=== PATIENT | female | born 1960 | race Caucasian/White ===

== ENCOUNTER 2017-02-26 18:09 | Emergency (ER) | payer OTHER ==
[~2017-02-26] VITALS: Wt 132.0 kg
[~2017-02-26 18:09] MED LIST: ADVAIR 250/501 EA INH; ALBUTEROL2.5 MG/0.5 INH; ANTIDEPRESSENT; BACTRIM DS 8001 TA1 PO; BUSPIRONE10 MG PO; CIPRO500 MG PO; CITALOPRAM10 MG PO; COLACE100 MG PO; COMBIVENT1 AR1 IH; DELTASONE10 MG PO; DULCOLAX10 MG R; Duoneb 3ML 3 MG/3 ML INH; FOLIC ACID1 MG PO; IBUPROFEN200 M1 PO; JARDIANCE25 MG PO; KEFLEX500 MG PO; LANTUS100 U/ML SC; LEVAQUIN750 M1 PO; LIPITOR40 MG PO; LISINOPRIL AND1 TAB PO; LOVENOX40 MG/0.4 SC; METFORMIN1000 MG PO; MUCINEX600 MG PO; NEURONTIN600 MG PO; NICODERM21 MG/24 H TD; NKHM; OMEPRAZOLE20 MG PO; OXYCODONE5 M1 PO; OXYGEN NAS; PREDNISONE10 MG PO; ROBITUSSIN CF240 ML PO; SYMBICORT1 AE1 IH; TRAD5TAB1 PO; TRAZODONE50 MG PO; TUDORZA PRESS400 MCG IH; TYLENOL COLD &1 TAB PO; TYLENOL325 M1 PO; VENTOLIN 02.5 MG/3 M INH; VENTOLIN,PR2 MG/5 ML PO; VICODIN 5/500 505 MG PO; VICODIN 500 MG-1 TAB PO; VITAMIN B12 1541 TAB PO; VITAMIN D32000 UNIT PO; ZITHROMAX250 MG PO; ZOLOFT25 MG PO; ZOVIRAX800 MG PO
[2017-02-26 21:02] LABS: BASO % 0.3 % (0.0-1.0); EOS # 0.2 10*3/uL (0.0-0.4); EOS % 3.1 % (1.0-4.0); HEMATOCRIT 34.8 % (37.0-47.0); HEMOGLOBIN 11.3 g/dl (12.0-16.0); LYMPH # 1.8 10*3/uL (1.3-4.4); LYMPH % 30.1 % (27.0-41.0); MEAN CORPUSCULAR HGB 30.2 pg (27.0-31.0); MEAN CORPUSCULAR HGB CONC 32.5 g/dl (33.0-37.0); MEAN PLATELET VOLUME 9.4 fl (9.6-12.3); MONO # 0.4 10*3/uL (0.1-1.0); MONO % 6.4 % (3.0-9.0); NEUT # 3.6 10*3/uL (2.3-7.9); NEUT % 59.9 % (47.0-73.0); PLATELET COUNT AUTOMATED 129 10*3/uL (130-400); RED BLOOD COUNT 3.74 10*6/uL (4.10-5.10); RED CELL DISTRI WIDTH 12.8 % (0-14.5); WHITE BLOOD COUNT 6.1 10*3/uL (4.8-10.8)
[2017-02-26 21:18] LABS: ALBUMIN 3.7 gm/dl (3.1-4.5); CREATININE 1.66 mg/dL (0.55-1.02); POTASSIUM 4.3 mmol/L (3.5-5.1); TOTAL PROTEIN 7.7 gm/dL (6.4-8.2)
== END 2017-02-27 02:52 | disposition short-term general hospital (02) ==
LOC: ED 18:09
PROVIDERS: Nurse Practitioner Family
DX: S93.05XA Dislocation of left ankle joint, initial encounter (principal); Z79.899 Other long term (current) drug therapy; Z87.891 Personal history of nicotine dependence; W18.39XA Other fall on same level, initial encounter; Y93.89 Activity, other specified; Y92.89 Other specified places as the place of occurrence of the external cause; Y99.8 Other external cause status

== ENCOUNTER 2017-03-15 10:04 | Inpatient (IN) | payer OTHER ==
[2017-03-15] VITALS (9 sets, daily range): BP systolic 80–113; BP diastolic 40–54
[~2017-03-15] VITALS: Ht 172.7 cm; Wt 128.6 kg
--- NOTE | ~2017-03-15 | PR ---
[place], [place] PROGRESS NOTE NAME: [facility] UNIT #: [id number] ROOM: 511 DOCTOR: LUCITA SUGGSSEPTEMBER BIRTHDATE: [birth year] DOS: 03/20/2017 SUBJECTIVE: The patient is being followed for urinary tract infection with E. coli. She is currently on Keflex. She is tolerating it without issues. Denies any fevers, chills, nausea, vomiting or diarrhea. No rash or itch. Little cough. No shortness of breath. No dysuria or frequency. LABORATORY DATA: Showed WBCs 8.2, platelets 222. PHYSICAL EXAMINATION: VITAL SIGNS: Showed temp 97.8, pulse 101, respirations 20, BP 110/77. GENERAL: Alert and oriented 56-year-old female in no acute distress. HEAD, EARS, EYES, NOSE, AND THROAT: Normocephalic, no thrush. LUNGS: Clear to auscultation bilaterally. Respirations even and unlabored. HEART: Regular rhythm. No murmur appreciated. ABDOMEN: Soft, nontender. EXTREMITIES: Left lower extremity is casted. SKIN: Warm, dry, free of rashes. ASSESSMENT: Urinary tract infection with Escherichia coli. PLAN: She is to be discharged to ____ as soon as precertification is available. She is to complete her Keflex as previously ordered. At this point in time, we will see her as needed. GARO LANDRUM CNP HAYDEE BENNETT MD CM:PNTRANS [phone] GARO LANDRUM CNP 03/22/17 0618 interface
--- NOTE | ~2017-03-15 | PR ---
[place], [place] PROGRESS NOTE NAME: [facility] [facility] UNIT #: [id number] ROOM: 511 DOCTOR: LUCITA SUGGSSEPTEMBER BIRTHDATE: [birth year] DOS: 03/19/2017 SUBJECTIVE: The patient is being followed for urinary tract infection. She had fairly sensitive E. coli of the urine, blood cultures were negative. She is alert and oriented; feels well, is awaiting to go back to her custodial. We are awaiting precert. Her only complaint is of a headache. She denies any hematuria, dysuria or frequency. No nausea, vomiting or diarrhea. Little nonproductive cough. No shortness of breath. LABORATORY DATA: Cultures were reviewed above. BUN 32, creatinine 1.03. PHYSICAL EXAMINATION: VITAL SIGNS: Temperature 97.5, pulse 89, respirations 18. GENERAL: A 56-year-old obese female, in no acute distress. HEAD, EYES, EARS, NOSE AND THROAT: Normocephalic. No thrush. LUNGS: Clear to auscultation bilaterally. Respirations even and unlabored. HEART: Regular rhythm. No murmur appreciated. ABDOMEN: Soft, nontender. EXTREMITIES: Right lower extremity, no edema. Left lower extremity casted. SKIN: Warm, dry, free of rashes. ASSESSMENT: Urinary tract infection with Escherichia coli. PLAN: She is on Keflex, awaiting discharge to her custodial once precertification has gone through. Case discussed with Dr. Haydee Bennett. GARO LANDRUM CNP HAYDEE BENNETT MD CM:PNTRANS [id number] GARO LANDRUM CNP 03/22/17 0615 interface
--- NOTE | ~2017-03-15 | PR ---
[place], [place] PROGRESS NOTE NAME: [facility] UNIT #: [id number] ROOM: 511 DOCTOR: SABRINA ELDER,HAYDEE Malcolm BIRTHDATE: [birth year] DOS: 03/20/2017 ADDENDUM I agree with the above plans as described. We will follow the patient up clinically and adjust accordingly. HAYDEE BENNETT MD CM:PNTRANS [id number] HAYDEE BENNETT MD 03/22/17 0630 interface
--- NOTE | ~2017-03-15 | EKG ---
[place], [place] ELECTROCARDIOGRAM REPORT NAME: [facility] UNIT #: [id number] ROOM: 511 DOCTOR: KARYN GARRETT MD BIRTHDATE: [birth year] DOS: 03/15/2017 TIME: 1023 hours. Sinus tachycardia at 101 beats per minute. Low voltage in precordial leads. The tracing is otherwise normal. No previous tracing is available for comparison. KARYN GARRETT MD CM:EKGRPT:ELECTROCARDIOGRAM REPORT [id number] KARYN GARRETT MD
--- NOTE | ~2017-03-15 | PR ---
[place], [place] PROGRESS NOTE [id number] UN[facility] #: [id number] ROOM: 511 DOCTOR: SABRINA ELDER,HAYDEE Malcolm BIRTHDATE: [birth year] DOS: INFECTIOUS DISEASE PROGRESS NOTE I agree with above plans as described. We will follow the patient up clinically and adjust accordingly. HAYDEE BENNETT MD CM:PNTRANS [phone] HAYDEE BENNETT MD 03/19/17 1657 interface
[~2017-03-15 10:04] MED LIST changes: -ALBUTEROL2.5 MG/0.5 INH; -LISINOPRIL AND1 TAB PO; +OXYCODONE HCL E15 MG PO; -OXYCODONE5 M1 PO; +ZESTORETIC 10-1 EACH PO; +ZOLOFT100 MG PO; -ZOLOFT25 MG PO
[2017-03-15 10:34] LABS: BASO % 0.3 % (0.0-1.0); EOS # 0.1 10*3/uL (0.0-0.4); EOS % 1.7 % (1.0-4.0); HEMATOCRIT 32.6 % (37.0-47.0); LYMPH # 1.1 10*3/uL (1.3-4.4); LYMPH % 16.1 % (27.0-41.0); MEAN CELL VOLUME 94.5 fl (81.0-99.0); MEAN CORPUSCULAR HGB CONC 30.7 g/dl (33.0-37.0); MEAN PLATELET VOLUME 9.7 fl (9.6-12.3); MONO # 0.5 10*3/uL (0.1-1.0); MONO % 6.9 % (3.0-9.0); NEUT # 4.9 10*3/uL (2.3-7.9); NEUT % 74.5 % (47.0-73.0); PLATELET COUNT AUTOMATED 236 10*3/uL (130-400); RED BLOOD COUNT 3.45 10*6/uL (4.10-5.10); RED CELL DISTRI WIDTH 13.5 % (0-14.5); WHITE BLOOD COUNT 6.6 10*3/uL (4.8-10.8)
[2017-03-15 10:43] LABS: ACT PARTIAL THROMBO TIME 29.6 SECONDS (20.8-31.5)
[2017-03-15 10:48] LABS: ALBUMIN 3.4 gm/dl (3.1-4.5); ALKALINE PHOSPHATASE 84 U/L (45-117); BUN 43 mg/dl (7-24); CHLORIDE 95 mmol/L (98-107); CREATININE 5.04 mg/dL (0.55-1.02); LIPASE 168 U/L (73-393); POTASSIUM 4.6 mmol/L (3.5-5.1); SGOT/AST 27 IU/L (3-35); SGPT/ALT 28 U/L (12-78); SODIUM 133 mmol/L (136-145); TOTAL PROTEIN 8.8 gm/dL (6.4-8.2)
[2017-03-15 10:54] LABS: TROPONIN I < 0.015 ng/ml (<0.045)
[2017-03-15 11:42] LABS: BILIRUBIN 1+ (NEGATIVE); BLOOD 3+ (NEGATIVE); CLARITY CLOUDY (CLEAR); COLOR YELLOW (YELLOW); GLUCOSE NEGATIVE (NEGATIVE); KETONE NEGATIVE (NEGATIVE); LEUKO ESTERASE TRACE (NEGATIVE); NITRITE NEGATIVE (NEGATIVE); SPECIFIC GRAVITY >= 1.030 (1.005-1.030)
--- NOTE | 2017-03-15 11:49 | NUR ---
DR HERNANDEZ AWARE OF LOW BP. PT IS ALERT,NO C/O.SKIN PINK,WARM,DRY.--SONIA DUGGAN RN
[2017-03-15 11:53] LABS: RBC 31-40 rbc/hpf (0-2)
[2017-03-15 11:54] LABS: BACTERIA 1+
[2017-03-15] MEDS ORDERED: CYCLOBENZAPRINE10 MG PO (15:09)
[2017-03-15] MEDS ORDERED: DALI500T PO (15:10)
[2017-03-15] MEDS ORDERED: DULCOLAX10 M1 R (15:14)
[2017-03-15] MEDS ORDERED: Lovenox40 MG/0.4 PO (15:19)
[2017-03-15] MEDS ORDERED: MILK OF MA400 MG/5 M PO (15:22)
[2017-03-15] MEDS ORDERED: OMEPRAZOLE D/R20 MG PO (15:23)
[2017-03-15] MEDS ORDERED: OXYCODONE HCL10 M1 PO (15:28)
[2017-03-15] MEDS ORDERED: ADIPEX-P37.5 MG PO (15:29)
[2017-03-15] MEDS ORDERED: TUDORZA PRESS400 MCG PO (15:37)
[2017-03-15] MEDS ORDERED: PROAIR HFA8.5 GM INH (15:38)
[2017-03-15] MEDS ORDERED: ZOLOFT50 MG PO (15:40)
[2017-03-15 17:03] LABS: ABG HCO3 21.3 mmol/l (22-26); ABG O2 SATURATION 93.5 % (95-97); ARTERIAL BLOOD GAS PCO2 47.6 mmHg (35-45); ARTERIAL BLOOD GAS PH 7.272 (7.35-7.45)
--- NOTE | 2017-03-15 17:11 | NUR ---
CALLED WITH ABG RESULTS.
--- NOTE | 2017-03-15 18:17 | NUR ---
REGARDING TEMPERATURE 103.2 ORALLY. HEART RATE 120'S. PATIENT CONFUSED AT THIS TIME. STATED TO GIVE TYLENOL PER PRN ORDER.
--- NOTE | 2017-03-15 18:18 | NUR ---
PATIENT MEDICATED WITH TYLENOL PER PRN ORDER FOR TEMPERATURE 103.2.
--- NOTE | 2017-03-15 18:41 | NUR ---
RECTAL TEMPERATURE TAKEN WITH 104.8 RESULT. NOTIFIED. ORDER RECEIVED FOR ONE TIME DOSE MORTIN AND COOLING BLANKET.
--- NOTE | 2017-03-15 19:23 | NUR ---
CALLED ANSWERING SERVICE REGARDING NEW CONSULT.
[2017-03-15 19:26] LABS: BASO % 0.5 % (0.0-1.0); EOS # 0.1 10*3/uL (0.0-0.4); EOS % 1.6 % (1.0-4.0); HEMATOCRIT 31.1 % (37.0-47.0); HEMOGLOBIN 9.6 g/dl (12.0-16.0); LYMPH # 0.5 10*3/uL (1.3-4.4); LYMPH % 10.8 % (27.0-41.0); MEAN CELL VOLUME 93.7 fl (81.0-99.0); MEAN CORPUSCULAR HGB 28.9 pg (27.0-31.0); MEAN CORPUSCULAR HGB CONC 30.9 g/dl (33.0-37.0); MEAN PLATELET VOLUME 10.6 fl (9.6-12.3); MONO # 0.2 10*3/uL (0.1-1.0); MONO % 4.7 % (3.0-9.0); NEUT # 3.6 10*3/uL (2.3-7.9); NEUT % 82.2 % (47.0-73.0); PLATELET COUNT AUTOMATED 197 10*3/uL (130-400); RED BLOOD COUNT 3.32 10*6/uL (4.10-5.10); RED CELL DISTRI WIDTH 13.3 % (0-14.5); WHITE BLOOD COUNT 4.4 10*3/uL (4.8-10.8)
--- NOTE | 2017-03-15 19:29 | NUR ---
NOTIFIED OF NEW CONSULT ORDER. LABS AND ULTRASOUNDS REVIEWED. NEW ORDER TO BLADDER SCAN PATIENT IF >[address] PLACE ONOFRE CATHETER.
[2017-03-15 19:40] LABS: ALBUMIN 3.3 gm/dl (3.1-4.5); CREATININE 4.51 mg/dL (0.55-1.02); MAGNESIUM 1.9 mg/dL (1.5-2.1); PHOSPHOROUS 5.2 mg/dL (2.5-4.9); POTASSIUM 5.2 mmol/L (3.5-5.1); TOTAL PROTEIN 8.2 gm/dL (6.4-8.2)
[2017-03-15 19:42] LABS: FREE T4 1.21 ng/dl (0.76-1.46)
[2017-03-15 19:46] LABS: THYROID STIM HORMONE (HS) 1.74 uIU/ml (0.358-4.75)
--- NOTE | 2017-03-15 19:59 | NUR ---
SPOKE WITH DR CARR. CONDITION AND ALL MEDICATIONS ORDERED DISCUSSED. NO NEW ORDERS RECEIVED.
--- NOTE | 2017-03-15 20:10 | NUR ---
ATIVAN APPEARS TO BE BECOMING EFFECTIVE.
[2017-03-15 20:12] LABS: CREATININE 4.23 mg/dL (0.55-1.02)
--- NOTE | 2017-03-15 20:16 | NUR ---
DR SEPULVEDA WAS PAGED THROUGH ANSWERING SERVICE TO NOTIFY OF LATEST BNP.
--- NOTE | 2017-03-15 20:32 | NUR ---
DR SEPULVEDA CALLS BACK...NOTIFIED OF BNP RESULTS FROM 1939...NO NEW ORDERS RECEIVED.
--- NOTE | 2017-03-15 21:46 | NUR ---
PT BACK FROM CT SCAN WITH RN AND PA. PT CALM AND RELAXED. DOES AWAKEN AND RETURN TO SLEEP. COOLING BLANKET ON MONITOR MODE ONLY AT 99. HR UPPER 90'S. PULSE OX 94% ON NC 6L. RR 16/MIN.
--- NOTE | 2017-03-16 01:08 | NUR ---
PT VOIDED ON BEDPAN BUT FELT SHE COULD VOID MORE. BLADDER SCANNED FOR >200CC. #16 ONOFRE CATHETER INSERTED ORDERED BY DR SEPULVEDA. IMMEDIATELY 350CC OBTAINED. ALSO MATTRESS DID NOT APPEAR TO BE FUNCTIONING PROPERLY. COMPLETE BATH AND BED LINEN CHANGE DONE AND PT TRANSFERRED TO NEW BED.
--- NOTE | 2017-03-16 02:08 | NUR ---
PT SLEEPING...BODY RELAXED...ONOFRE CONTINUES TO DRAIN STRAW COLORED URINE.
[2017-03-16 03:57] VITALS: BP 104/53
[2017-03-16 04:59] LABS: HEMOGLOBIN 9.8 g/dl (12.0-16.0); MEAN CELL VOLUME 94.7 fl (81.0-99.0); MEAN CORPUSCULAR HGB CONC 30.6 g/dl (33.0-37.0); MEAN PLATELET VOLUME 10.5 fl (9.6-12.3); PLATELET COUNT AUTOMATED 188 10*3/uL (130-400); RED BLOOD COUNT 3.38 10*6/uL (4.10-5.10); RED CELL DISTRI WIDTH 13.2 % (0-14.5); WHITE BLOOD COUNT 4.2 10*3/uL (4.8-10.8)
[2017-03-16 05:19] LABS: PLATELET SUFFICIENCY NORMAL (NORMAL); TOTAL CELLS COUNTED 100 #CELLS
[2017-03-16 05:28] LABS: CREATININE 3.18 mg/dL (0.55-1.02); PHOSPHOROUS 4.2 mg/dL (2.5-4.9)
[2017-03-16 05:36] LABS: THYROID STIM HORMONE (HS) 0.717 uIU/ml (0.358-4.75)
[2017-03-16 05:47] LABS: POTASSIUM 6.1 mmol/L (3.5-5.1)
--- NOTE | 2017-03-16 06:00 | NUR ---
DR DEVLIN NOTIFIED OF K+6.1. HE ARRIVES AND SEES PT. CONDITION REVIEWED AND HE PLACES ORDERS.
--- NOTE | 2017-03-16 06:24 | NUR ---
EKG BEING PERFORMED AT THIS TIME. PT WAKING UP MORE AT THIS TIME.
[2017-03-16 07:43] LABS: VITAMIN D, 25-HYDROXY 20.7 ng/mL (30-100)
[2017-03-16 08:00] VITALS: BP 105/54
[2017-03-16 12:00] VITALS: BP 125/62
[2017-03-16 16:00] VITALS: BP 121/59
[2017-03-16 19:55] VITALS: BP 115/54
--- NOTE | 2017-03-16 20:35 | NUR ---
PT PLEASANT, COOPERATIVE, APPROPRIATE. NO COMPLAINTS OFFERED.
[2017-03-17] VITALS: BP 113/47
--- NOTE | 2017-03-17 00:35 | NUR ---
PT ACCIDENTALLY DISLODGED IV IN RT HAND. COMPLETE BED LINEN AND GOWN CHANGE DONE. NEW IV STARTED RT HAND.
[2017-03-17 04:00] VITALS: BP 124/66
[2017-03-17 04:46] LABS: HEMATOCRIT 30.5 % (37.0-47.0); HEMOGLOBIN 9.6 g/dl (12.0-16.0); LYMPH # 0.5 10*3/uL (1.3-4.4); LYMPH % 8.6 % (27.0-41.0); MEAN CELL VOLUME 93.6 fl (81.0-99.0); MEAN CORPUSCULAR HGB 29.4 pg (27.0-31.0); MEAN CORPUSCULAR HGB CONC 31.5 g/dl (33.0-37.0); MEAN PLATELET VOLUME 10.6 fl (9.6-12.3); MONO # 0.4 10*3/uL (0.1-1.0); MONO % 6.8 % (3.0-9.0); NEUT # 5.3 10*3/uL (2.3-7.9); NEUT % 83.8 % (47.0-73.0); PLATELET COUNT AUTOMATED 219 10*3/uL (130-400); RED BLOOD COUNT 3.26 10*6/uL (4.10-5.10); WHITE BLOOD COUNT 6.3 10*3/uL (4.8-10.8)
[2017-03-17 05:11] LABS: CREATININE 1.51 mg/dL (0.55-1.02)
[2017-03-17 05:12] LABS: POTASSIUM 4.5 mmol/L (3.5-5.1)
--- NOTE | 2017-03-17 06:11 | NUR ---
RESTING IN BED. BIPAP OFF AND NASAL CANNULA ON ORDERED.
--- NOTE | 2017-03-17 07:19 | NUR ---
Shift chart check completed.24 HR chart check completed.
--- NOTE | 2017-03-17 07:31 | NUR ---
TALKED WITH AJAY FROM [facility] WHO RECOMMENDS PT BE NPO UNTIL THE RADIOLOGIST COMES IN TO REVIEW HER CASE.
[2017-03-17 08:00] VITALS: BP 124/80
--- NOTE | 2017-03-17 09:01 | NUR ---
ON ASSESSMENT PATIENT AROUSED EASILY, APPEARED ORIENTED. NO VOICED COMPLAINTS OF PAIN. PT WENT TO RADIOLOGY VIA CART FOR LUMBAR PUNCTURE, ON TRANSPORT MONITOR. SEE ALL APPROPRIATE INTERVENTIONS.
--- NOTE | 2017-03-17 09:48 | NUR ---
[facility] RADI[facility]IST CALLED ME-THEY WERE UNABLE TO PERFORM THE LUMBAR PUNCTURE. DR BLOOD NOTIFIED.
--- NOTE | 2017-03-17 11:59 | NUR ---
PATIENT TRANSFERED TO ROOM 511-1 FROM ICU PER ORDER. REPORT GIVEN TO THIS NURSE BY JACQUELINE HEREDIA. PT RESTING COMFORTABLY IN BED. NO DISTRESS NOTED. 02 IN USE. WILL CONTINUE TO MONITOR. VSS. CALL LIGHT WITHIN REACH.
[2017-03-17 12:00] VITALS: BP 126/67
--- NOTE | 2017-03-17 12:03 | NUR ---
TRANSFERRED IN STABLE CONDITION VIA BED TO [facility]. REPORT TO RUDY.
[2017-03-17 16:00] VITALS: BP 126/62
--- NOTE | 2017-03-17 16:00 | NUR ---
Patient resting quietly with no c/o discomfort. Respirations easy and regular. Vital signs stable. No overt distress. RUDY MUNIZ.
[2017-03-17] MEDS ORDERED: CEPHALEXIN500 M1 PO (19:15)
[2017-03-17 20:00] VITALS: BP 102/65
[2017-03-18] VITALS: BP 104/60
--- NOTE | 2017-03-18 01:39 | NUR ---
Shift chart check completed.
--- NOTE | 2017-03-18 02:27 | NUR ---
ROXICODONE GIVEN FOR PAIN IN LEFT FOOT. PAIN RATED 7/10. WILL MONITOR
--- NOTE | 2017-03-18 03:15 | NUR ---
ROXICODONE EFFECTIVE. PATIENT ASLEEP WITH RESPIRATIONS >12
[2017-03-18 07:13] LABS: CREATININE 1.22 mg/dL (0.55-1.02); PHOSPHOROUS 4.3 mg/dL (2.5-4.9); POTASSIUM 4.5 mmol/L (3.5-5.1)
[2017-03-18 08:00] VITALS: BP 124/68
--- NOTE | 2017-03-18 09:56 | NUR ---
Patient came from [facility]. Will require PT and OT for precert to return. Contacted K[facility] nurse director of hospitalists for PT and OT orders. Will follow
--- NOTE | 2017-03-18 10:45 | NUR ---
PHYSICAL THERAPY PAtient evaluated on 5, full evaluation to follow. Continue with PT as per plan of care with fall, NWB LEFT LE and 02 precautions. Will require return to SNF for impaired mobility in order to return to home at [facility]. PAtient is modrate complexity via chart review, tests and evaluation: [id number]. Thank you for this referral. Elma Evans,PT
--- NOTE | 2017-03-18 10:56 | NUR ---
Occupational Therapy evalaution completed on 5 with full eval to follow. Patient hospitalized with UTI, metabolic encephalopathy, she was found with o2 sats @ 60% and was without bipap. She is usually on 6% O2 AND BIPAP at night. Precautions include moderate complexity level 04509, fall risk, NWB LLE d/t prior ankle fx w/ cast in place, obesity, O2 dependent. Recomemnd OT per POC and return to SNF for rehab. Thank you for this referral. Daina Hernandez OTR/l
[2017-03-18 12:00] VITALS: BP 127/70
--- NOTE | 2017-03-18 14:00 | NUR ---
All required clincals with PT and OT evals were faxed to [facility] and asked to start precert as soon as possible as patient is ready for discharge. Waiting on auth
--- NOTE | 2017-03-18 14:10 | NUR ---
Nutritional Support Services Note: Pt with dx of renal disease. Currently on a low K+ diet. Discussed diet with patient and ratioale for diet. Appetite is good for meals. No other nutrition intervention needed at this time. Pt is awaiting placement at an area group home. Will follow as needed. Judith Flores
--- NOTE | 2017-03-18 15:19 | NUR ---
PRN PAIN MED GIVEN FOR PT REPORT 7/10 LEFT ANKLE PAIN.
[2017-03-18 16:00] VITALS: BP 119/61
--- NOTE | 2017-03-18 16:17 | NUR ---
PRN PAIN MED MINIMALLY EFFECTIVE, PT REPORTS PAIN 4-5/10.
--- NOTE | 2017-03-18 16:38 | NUR ---
PATIENT SEEN FOR 22 MINUTES THIS DATE. PATIENT IDENTIFIED BY NAME AND DATE OF COMPLETED BUE STRENGTHENING ALL PLANES AROM X 15 REPS EOB WITH C/O FATIGUE. PATIENT COMPLETED SIT TO STAND BED ANDRES AND COMPLETED STATIC STAND X 2 APPROX 20-30 SECONDS WITH USE FWW SUPPORT AND GOOD LLE NWB CARRYOVER AFTER EDUCATION. PATIENT COMPLETED BED MOBILITY CGA SIT TO SUPINE. SHADE PARKER
[2017-03-18 20:00] VITALS: BP 120/62
--- NOTE | 2017-03-18 20:16 | NUR ---
PATIENT RESTING QUIETLY IN BED. C/O LEFT ANKLE PAIN AT A 5. THERE IS A CAST TO THIS LEFT LEG WHICH SHE STATES HAPPENED 2 WEEKS AGO. RESPIRATIONS EASY/REGULAR ON 4LNC. CALL LIGHT IS IN REACH. WILL MONITOR.
--- NOTE | 2017-03-18 22:17 | NUR ---
PATIENT MEDICATED WITH PRN ROXICODONE FOR PAIN IN LEFT ANKLE/FOOT RATED 7.
[2017-03-19] VITALS: BP 118/64
--- NOTE | 2017-03-19 03:44 | NUR ---
Resting quietly in bed. Roxicodone effective, during 0000 assessment denied pain. Resp easy and regular. Will continue to monitor.
[2017-03-19 07:11] LABS: BUN 32 mg/dl (7-24); CHLORIDE 107 mmol/L (98-107); CREATININE 1.03 mg/dL (0.55-1.02); PHOSPHOROUS 3.7 mg/dL (2.5-4.9); POTASSIUM 3.9 mmol/L (3.5-5.1); SODIUM 142 mmol/L (136-145)
[2017-03-19 08:00] VITALS: BP 136/60
--- NOTE | 2017-03-19 10:00 | NUR ---
PT REQUESTED AND GIVEN ROXICODONE FOR C/O GEN PAIN AND LEFT LEG PAIN. PT RATES PAIN 11/27. WILL MONITOR. CALL LIGHT WITHIN REACH
--- NOTE | 2017-03-19 12:02 | NUR ---
PT STATES THAT ROXICODONE HELPED. WILL MONITOR
--- NOTE | 2017-03-19 14:54 | NUR ---
PT REQUESTED AND GIVEN TYLENOL FOR C/O HEADACHE. WILL MONITOR
[2017-03-19 16:00] VITALS: BP 108/57
--- NOTE | 2017-03-19 16:41 | NUR ---
TYLENOL EFFECTIVE, TONG MONITOR
[2017-03-19 20:00] VITALS: BP 104/51
--- NOTE | 2017-03-19 20:30 | NUR ---
RESTING IN BED WATCHING TV WITH NO DISTRESS NOTED. RESPIRATIONS EASY. LUNGS DIMINISHED WITH POOR AIR MOVEMENT. PULSE OX 95% 4L. DECLINING BI-PAP. CAST NOTED INTACT TO LLE. CALL LIGHT WITHIN REACH. NO VOICED COMPLAINTS
--- NOTE | 2017-03-19 21:42 | NUR ---
MEDICATED WITH ROXICODONE FOR C/O PAIN TO LLE RATING A 6. ALSO RECEIVED RESTORIL TO ASSIST WITH SLEEP. CALL LIGHT WITHIN REACH. WILL MONITOR FOR EFFECTIVENESS
[2017-03-20] VITALS: BP 117/76
--- NOTE | 2017-03-20 | NUR ---
EARLIER MEDS APPEAR EFFECTIVE. SLEEPING. RESPIRATIONS EASY. VSS. CALL LIGHT WITHIN REACH.
--- NOTE | 2017-03-20 03:00 | NUR ---
CONTINUES TO SLEEP WITH NO DISTRESS NOTED. RESPIRATIONS EASY. O2 IN USE.
--- NOTE | 2017-03-20 05:00 | NUR ---
awake, sitting at bedside. humidification applied to o2 to assist with nasal dryness. call light within reach. no voiced complaints this shift
--- NOTE | 2017-03-20 06:16 | NUR ---
requested and received roxicodone per prn order for complaints of lle pain rating a 7. call light within reach. will monitor for effectiveness
[2017-03-20 07:00] LABS: BASO % 0.1 % (0.0-1.0); EOS # 0.1 10*3/uL (0.0-0.4); EOS % 1.6 % (1.0-4.0); HEMATOCRIT 35.5 % (37.0-47.0); HEMOGLOBIN 10.7 g/dl (12.0-16.0); LYMPH # 2.4 10*3/uL (1.3-4.4); LYMPH % 29.4 % (27.0-41.0); MEAN CELL VOLUME 94.7 fl (81.0-99.0); MEAN CORPUSCULAR HGB 28.5 pg (27.0-31.0); MEAN CORPUSCULAR HGB CONC 30.1 g/dl (33.0-37.0); MEAN PLATELET VOLUME 10.4 fl (9.6-12.3); MONO # 0.7 10*3/uL (0.1-1.0); MONO % 8.1 % (3.0-9.0); NEUT # 4.9 10*3/uL (2.3-7.9); NEUT % 59.6 % (47.0-73.0); NUCLEATED RED BLOOD CELL 0.2 % (0.0-0.0); PLATELET COUNT AUTOMATED 222 10*3/uL (130-400); RED BLOOD COUNT 3.75 10*6/uL (4.10-5.10); RED CELL DISTRI WIDTH 13.4 % (0-14.5); WHITE BLOOD COUNT 8.2 10*3/uL (4.8-10.8)
[2017-03-20 08:00] VITALS: BP 117/73
--- NOTE | 2017-03-20 08:27 | NUR ---
PT RESTING IN BED, NO DISTRESS NOTED. WILL MONITOR
[2017-03-20 12:00] VITALS: BP 110/77
--- NOTE | 2017-03-20 15:32 | NUR ---
PT RESTING IN BED. NO DISTRESS NOTED. WILL MONITOR
[2017-03-20 16:00] VITALS: BP 118/54
[2017-03-20 20:00] VITALS: BP 107/67
--- NOTE | 2017-03-20 21:52 | NUR ---
PO ROXICODDONE ADMINISTERED PER PRN ORDER FOR PT C/O PAIN 6/10 IN LEFT LOWER EXTREMITY. PO RESTORIL ALSO ADMINISTERED PER PT'S REQUEST FOR C/O INSOMNIA. WILL MONITOR EFFECTIVENESS OF MEDICATIONS. PATIENT REFUSING BIPAP AT PRESENT TIME. WILL MONITOR. CALL LIGHT LEFT WITHIN REACH.
--- NOTE | 2017-03-20 22:36 | NUR ---
EARLIER MEDICATIONS WERE EFFECTIVE PER PT. PATIENT SLEEPING, AROUSES EASILY. STATES PAIN IS NOW 3/10. WILL CONTINUE TO MONITOR. CALL LIGHT LEFT IN REACH.
[2017-03-21] VITALS: BP 135/67
--- NOTE | 2017-03-21 04:02 | NUR ---
PATIENT AWAKE IN BED, REQUESTING MEDICATION FOR HEADACHE. PO TYLENOL ADMINISTERED PER PRN ORDER. WILL MONITOR EFFECTIVNESS. PATIENT DENIES SOB ON 4L NC AND IS STILL REFUSING BIPAP AT THIS TIME. WILL MONITOR.
--- NOTE | 2017-03-21 05:08 | NUR ---
PATIENT STATES EARLIER TYLENOL WAS EFFECTIVE IN HELPING HEADACHE. WILL CONTINUE TO MONITOR. CALL LIGHT LEFT IN REACH.
[2017-03-21 08:00] VITALS: BP 132/80
--- NOTE | 2017-03-21 09:46 | NUR ---
OXY IR 10 MG GIVEN FOR C/O LEFT LOWER LWG PAIN,12/27.
--- NOTE | 2017-03-21 09:52 | NUR ---
NOTIFIED DR DEVLIN THAT PT IV HAD COME OUT AND SHE REFUSED ANOTHER. PT IS ON NO IV MEDS AND DR DEVLIN WAS OK WITH THAT.
--- NOTE | 2017-03-21 09:56 | NUR ---
PHYSICAL THERAPY Patient presented to therapy in supine and having a pain level of 4/10 in the L ANKLE. Patient says she will going back to the rehab center for more therapy after she is discharged from [facility]. Patient performed sit to stand with CGA X 1 with and ambulated 20' x 1 with W/W around room with CGA X 1. PATIENT WAS 1:1 WITH THIS MILLSTONE CLEANER FOR 15 MINUTES. DELONTE MALLORY MILLSTONE CLEANER
--- NOTE | 2017-03-21 09:57 | NUR ---
Patient seen for 30 minutes 1:1 this date. Completed ADL task donning gown de la garza seated and completed grooming wash face standing use FWW support and good carryover LLE NWB status.Completed sit to stand and stand to sit bed CGA and minimal cues safety Completed stand tolerance use FWW support 2 minutes x 2 with min verbal cues safety CGA. Patient Completed BUE AROM shoulder flex/ext, shoulder circumduction, and scapular retraction/ protraction x 15 reps seated EOB. Completed BUE strengthening use green T band 4 exercises x 15 reps seated with mod verbal cues tech/form for increase independence functional transfers and carryover LL NWB. patient identified by name and date of this date. Barbara PARKER
[2017-03-21 12:00] VITALS: BP 131/82
--- NOTE | 2017-03-21 15:48 | NUR ---
PHYSICAL THERAPY Patient presented t venice siu hreport of waiting on [facility] to see if she can go to the [facility] for rehab. Patient says she has minimal pain in the Left ankle today. Patient performed supine to sitting at EOB and sit to stand transfers Independently. Patient ambulated with Walker and NWB on Left LE for 20 'x 1 with Supervision. DELONTE MALLORY EDISCOVERY PROJECT MANAGER
[2017-03-21 16:00] VITALS: BP 117/55
[2017-03-21 20:00] VITALS: BP 113/58
--- NOTE | 2017-03-21 21:54 | NUR ---
PATIENT REQUESTED AND RECEIVED PO TYLENOL AND PO RESTORIL PER PRN ORDER FOR C/O HEADACHE AND INSOMNIA. WILL MONITOR EFFECTIVENESS. CALL LIGHT LEFT IN REACH.
--- NOTE | 2017-03-21 22:36 | NUR ---
EARLIER MEDICATIONS APPEAR EFFECTIVE. PATIENT ASLEEP IN BED. RESPIRATIONS EASY, NO S/S OF DISTRESS NOTED. ON 3.5L NC. WILL CONTINUE TO MONITOR. CALL LIGHT IN REACH.
--- NOTE | 2017-03-21 23:23 | NUR ---
PATIENT MEDICATED WITH PO ROXICODONE AND PO FLEXERIL PER PRN ORDER FOR C/O LEFT LEG PAIN 5/10 AND RESTLESS LEGS/SPASMS. WILL MONITOR EFFECTIVENESS. PATIENT STATES EARLIER PO TYLENOL AND RESTORIL WERE EFFECTIVE. CALL LIGHT LEFT IN REACH.
[2017-03-22] VITALS: BP 126/68
--- NOTE | 2017-03-22 00:30 | NUR ---
EARLIER MEDICATIONS APPEAR EFFECTIVE. PATIENT ASLEEP IN BED, RESPIRATIONS EASY, NO S/S OF DISTRESS NOTED ON 3.5L NC. WILL MONITOR. CALL LIGHT LEFT IN REACH.
--- NOTE | 2017-03-22 06:16 | NUR ---
PO TYLENOL ADMINISTERED FOR PT C/O A HEADACHE. WILL MONITOR EFFECTIVENESS. CALL LIGHT IN REACH.
[2017-03-22 07:32] LABS: BUN 21 mg/dl (7-24); CREATININE 0.83 mg/dL (0.55-1.02)
[2017-03-22 08:00] VITALS: BP 136/66
--- NOTE | 2017-03-22 08:55 | NUR ---
PT REQUESTED AND GIVEN OXY IR FOR C/O LEFT LE PAIN . PT RATES PAIN 5/10. WILL MONITOR
--- NOTE | 2017-03-22 09:51 | NUR ---
PHYSICAL THERAPY Estephania seen this AM 1:1 for her therapy session, Pt on 2 L o2 and did well with that. Pt is WBAT left foot and did well with that. Gait with wheeled walker o2, and CGA X 1, 44' X 1, with cueign for gait, walker and WBAT safety. Pt back sitting at bedside. LILLY PEREIRA SALESPERSON BOOKS.
[2017-03-22 12:00] VITALS: BP 145/86
[2017-03-22] MEDS ORDERED: VITAMIN D-32000 UNI1 PO (12:13)
[2017-03-22] MEDS ORDERED: NEURONTIN600 MG PO (12:13)
[2017-03-22] MEDS ORDERED: OXYCODONE HCL E15 MG PO (12:13)
[2017-03-22] MEDS ORDERED: KEFLEX 500 MG E2 CAP PO (12:13)
[2017-03-22] MEDS ORDERED: OXYCODONE HCL10 M1 PO (12:13)
--- NOTE | 2017-03-22 12:25 | NUR ---
Patient is being discharged, returning to [facility]. Transportation scheduled for 2pm with [facility]. NH, nursing and family notified.
--- NOTE | 2017-03-22 13:40 | NUR ---
REPORT CALLED TO REYNOLD RICHTER
--- NOTE | 2017-03-22 13:46 | NUR ---
Discharge instructions reviewed with patient/family. Patient receptive and verbalizes understanding. Follow-up care arranged. Written instructions given to patient/family. MITALI RETANA
--- NOTE | 2017-03-24 08:07 | NUR ---
PHYSICAL THERAPY CO-SIGN I approve of the Phyical Therapy notes written above. MILAD MEIER PT
== END 2017-03-22 13:46 | disposition other institution (70) | DRG 871 ==
LOC: ED 10:04 → ICCU 13:19 → 5E 13:19 → EDHOLD 13:19 → ICCU 13:39 → 5E 03-17 11:19
PROVIDERS: Emergency Medicine; Internal Medicine; Internal Medicine Nephrology; Student in an Organized Health Care Education/Training Program; ADMIT Internal Medicine
DX: A41.9 Sepsis, unspecified organism (principal); G93.41 Metabolic encephalopathy; N17.0 Acute kidney failure with tubular necrosis; J96.10 Chronic respiratory failure, unspecified whether with hypoxia or hypercapnia; E87.1 Hypo-osmolality and hyponatremia; E44.1 Mild protein-calorie malnutrition; E86.0 Dehydration; E55.9 Vitamin D deficiency, unspecified; K76.0 Fatty (change of) liver, not elsewhere classified; D64.9 Anemia, unspecified; I11.0 Hypertensive heart disease with heart failure; B96.20 Unspecified Escherichia coli [E. coli] as the cause of diseases classified elsewhere; I50.32 Chronic diastolic (congestive) heart failure; N39.0 Urinary tract infection, site not specified; E11.8 Type 2 diabetes mellitus with unspecified complications; E87.8 Other disorders of electrolyte and fluid balance, not elsewhere classified; F41.9 Anxiety disorder, unspecified; F32.9 Major depressive disorder, single episode, unspecified; J44.9 Chronic obstructive pulmonary disease, unspecified; G47.33 Obstructive sleep apnea (adult) (pediatric); Z99.81 Dependence on supplemental oxygen; Z98.51 Tubal ligation status; Z87.891 Personal history of nicotine dependence; Z82.3 Family history of stroke; Z84.89 Family history of other specified conditions; Z83.6 Family history of other diseases of the respiratory system; Z80.8 Family history of malignant neoplasm of other organs or systems

== ENCOUNTER → 2017-04-04 | Outpatient (CLI) | payer OTHER, MEDICARE ==
[~2017-04-04] MED LIST changes: +ADIPEX-P37.5 MG PO; +CEPHALEXIN500 M1 PO; +CYCLOBENZAPRINE10 MG PO; +DALI500T PO; +DULCOLAX10 M1 R; +KEFLEX 500 MG E2 CAP PO; +Lovenox40 MG/0.4 PO; +MILK OF MA400 MG/5 M PO; +OMEPRAZOLE D/R20 MG PO; +OXYCODONE HCL10 M1 PO; +PROAIR HFA8.5 GM INH; +TUDORZA PRESS400 MCG PO; +VITAMIN D-32000 UNI1 PO; +ZOLOFT50 MG PO
== END | disposition home or self-care (01) ==
LOC: RAD 13:30
DX: M81.0 Age-related osteoporosis without current pathological fracture (principal)

== ENCOUNTER → 2017-05-27 | Outpatient (CLI) | payer OTHER | END | disposition home or self-care (01) | LOC: LAB 12:54 → RAD 12:54 | DX: M16.11 Unilateral primary osteoarthritis, right hip (principal) ==

== ENCOUNTER 2017-12-03 10:33 | Inpatient (IN) | payer OTHER ==
[~2017-12-03] VITALS: Ht 170.1 cm; Wt 129.0 kg
[2017-12-03 10:40] VITALS: BP 115/62
[2017-12-03 11:11] LABS: BASO % 0.4 % (0.0-1.0); EOS # 0.2 10*3/uL (0.0-0.4); EOS % 3.4 % (1.0-4.0); HEMATOCRIT 36.3 % (37.0-47.0); HEMOGLOBIN 11.5 g/dl (12.0-16.0); LYMPH # 1.6 10*3/uL (1.3-4.4); MEAN CELL VOLUME 93.8 fl (81.0-99.0); MEAN CORPUSCULAR HGB 29.7 pg (27.0-31.0); MEAN CORPUSCULAR HGB CONC 31.7 g/dl (33.0-37.0); MEAN PLATELET VOLUME 9.5 fl (9.6-12.3); MONO # 0.5 10*3/uL (0.1-1.0); MONO % 7.3 % (3.0-9.0); NEUT # 4.3 10*3/uL (2.3-7.9); NEUT % 64.6 % (47.0-73.0); PLATELET COUNT AUTOMATED 176 10*3/uL (130-400); RED BLOOD COUNT 3.87 10*6/uL (4.10-5.10); RED CELL DISTRI WIDTH 12.4 % (0-14.5); WHITE BLOOD COUNT 6.7 10*3/uL (4.8-10.8)
[2017-12-03 11:25] LABS: CREATININE 1.21 mg/dL (0.55-1.02); TOTAL PROTEIN 8.2 gm/dL (6.4-8.2)
[2017-12-03 12:22] VITALS: BP 109/57
[2017-12-03] MEDS ORDERED: ZESTORETIC 10-1 EACH PO (12:52)
[2017-12-03] MEDS ORDERED: OXYCODONE HCL5 MG PO (12:53)
[2017-12-03 16:00] VITALS: BP 111/59
[2017-12-03 18:02] LABS: BILIRUBIN NEGATIVE (NEGATIVE); BLOOD NEGATIVE (NEGATIVE); CLARITY SL CLOUDY (CLEAR); COLOR YELLOW (YELLOW); GLUCOSE 3+ (NEGATIVE); KETONE NEGATIVE (NEGATIVE); LEUKO ESTERASE NEGATIVE (NEGATIVE); NITRITE NEGATIVE (NEGATIVE); PH 5.5 (5.0-9.0); SPECIFIC GRAVITY 1.015 (1.005-1.030); UROBILINOGEN 0.2 E.U./dl (0.2-1.0)
[2017-12-03 18:30] LABS: BACTERIA 2+
[2017-12-03 20:00] VITALS: BP 120/53
[2017-12-04] VITALS: BP 96/52
[2017-12-04 06:15] LABS: BASO % 0.5 % (0.0-1.0); EOS # 0.2 10*3/uL (0.0-0.4); EOS % 4.4 % (1.0-4.0); HEMATOCRIT 32.7 % (37.0-47.0); HEMOGLOBIN 10.1 g/dl (12.0-16.0); LYMPH # 1.8 10*3/uL (1.3-4.4); LYMPH % 33.2 % (27.0-41.0); MEAN CELL VOLUME 96.2 fl (81.0-99.0); MEAN CORPUSCULAR HGB 29.7 pg (27.0-31.0); MEAN CORPUSCULAR HGB CONC 30.9 g/dl (33.0-37.0); MEAN PLATELET VOLUME 9.2 fl (9.6-12.3); MONO # 0.4 10*3/uL (0.1-1.0); MONO % 6.9 % (3.0-9.0); NEUT % 54.8 % (47.0-73.0); PLATELET COUNT AUTOMATED 138 10*3/uL (130-400); RED CELL DISTRI WIDTH 12.5 % (0-14.5); WHITE BLOOD COUNT 5.5 10*3/uL (4.8-10.8)
[2017-12-04 06:35] LABS: CREATININE 1.32 mg/dL (0.55-1.02); FREE T4 0.9 ng/dl (0.76-1.46); PHOSPHOROUS 5.1 mg/dL (2.5-4.9); POTASSIUM 5.5 mmol/L (3.5-5.1)
[2017-12-04 06:42] LABS: THYROID STIM HORMONE (HS) 7.64 uIU/ml (0.358-4.75)
[2017-12-04 07:33] LABS: VITAMIN D, 25-HYDROXY 22.1 ng/mL (30-100)
[2017-12-04 08:00] VITALS: BP 108/72
[2017-12-04 11:58] LABS: CREATININE 1.37 mg/dL (0.55-1.02); POTASSIUM 5.2 mmol/L (3.5-5.1)
[2017-12-04 12:00] VITALS: BP 102/60
[2017-12-04 16:00] VITALS: BP 113/67
[2017-12-04 20:00] VITALS: BP 109/69
[2017-12-05] VITALS: BP 111/56
[2017-12-05 06:24] LABS: BASO % 0.5 % (0.0-1.0); EOS # 0.2 10*3/uL (0.0-0.4); EOS % 4.6 % (1.0-4.0); HEMATOCRIT 32.7 % (37.0-47.0); HEMOGLOBIN 10.1 g/dl (12.0-16.0); LYMPH # 1.7 10*3/uL (1.3-4.4); LYMPH % 40.2 % (27.0-41.0); MEAN CORPUSCULAR HGB CONC 30.9 g/dl (33.0-37.0); MEAN PLATELET VOLUME 10.2 fl (9.6-12.3); MONO # 0.3 10*3/uL (0.1-1.0); MONO % 6.9 % (3.0-9.0); NEUT # 2.1 10*3/uL (2.3-7.9); NEUT % 47.6 % (47.0-73.0); PLATELET COUNT AUTOMATED 142 10*3/uL (130-400); RED BLOOD COUNT 3.48 10*6/uL (4.10-5.10); RED CELL DISTRI WIDTH 12.6 % (0-14.5); WHITE BLOOD COUNT 4.3 10*3/uL (4.8-10.8)
[2017-12-05 06:35] LABS: ALBUMIN 3.6 gm/dl (3.1-4.5); CREATININE 1.15 mg/dL (0.55-1.02); PHOSPHOROUS 5.3 mg/dL (2.5-4.9); POTASSIUM 5.1 mmol/L (3.5-5.1)
[2017-12-05 08:00] VITALS: BP 116/65
[2017-12-05 12:00] VITALS: BP 123/63
[2017-12-05 16:00] VITALS: BP 118/64
[2017-12-05 20:00] VITALS: BP 128/53
[2017-12-06] VITALS: BP 104/54
[2017-12-06 06:19] LABS: BASO % 0.6 % (0.0-1.0); EOS # 0.3 10*3/uL (0.0-0.4); EOS % 5.1 % (1.0-4.0); HEMATOCRIT 37.4 % (37.0-47.0); HEMOGLOBIN 11.3 g/dl (12.0-16.0); LYMPH # 1.5 10*3/uL (1.3-4.4); LYMPH % 31.4 % (27.0-41.0); MEAN CELL VOLUME 95.9 fl (81.0-99.0); MEAN CORPUSCULAR HGB CONC 30.2 g/dl (33.0-37.0); MONO # 0.4 10*3/uL (0.1-1.0); MONO % 7.3 % (3.0-9.0); NEUT # 2.7 10*3/uL (2.3-7.9); NEUT % 55.4 % (47.0-73.0); PLATELET COUNT AUTOMATED 170 10*3/uL (130-400); RED CELL DISTRI WIDTH 12.4 % (0-14.5); WHITE BLOOD COUNT 4.9 10*3/uL (4.8-10.8)
[2017-12-06 06:44] LABS: ALBUMIN 3.9 gm/dl (3.1-4.5); POTASSIUM 5.3 mmol/L (3.5-5.1)
[2017-12-06 06:47] LABS: CREATININE 1.22 mg/dL (0.55-1.02); PHOSPHOROUS 5.3 mg/dL (2.5-4.9)
[2017-12-06] MEDS ORDERED: KEFLEX500 M1 PO (07:56)
[2017-12-06] MEDS ORDERED: DOXYCYCLINE100 M3 PO (07:56)
[2017-12-06 08:00] VITALS: BP 122/62
== END 2017-12-06 12:27 | disposition home or self-care (01) | DRG 872 ==
LOC: ED 10:33 → EDHOLD 11:40 → 4E 11:40
PROVIDERS: Internal Medicine; Internal Medicine Hospice and Palliative Medicine; Nurse Practitioner Family
PROC: 0J973ZZ Drainage of Back Subcutaneous Tissue and Fascia, Percutaneous Approach (ICD-10-PCS; principal; 2017-12-05)
DX: A41.9 Sepsis, unspecified organism (principal); J96.10 Chronic respiratory failure, unspecified whether with hypoxia or hypercapnia; E13.8 Other specified diabetes mellitus with unspecified complications; E66.01 Morbid (severe) obesity due to excess calories; L03.312 Cellulitis of back [any part except buttock and flank]; L02.212 Cutaneous abscess of back [any part, except buttock and flank]; I50.32 Chronic diastolic (congestive) heart failure; Z68.41 Body mass index [BMI] 40.0-44.9, adult; I11.0 Hypertensive heart disease with heart failure; R65.20 Severe sepsis without septic shock; J44.9 Chronic obstructive pulmonary disease, unspecified; F41.9 Anxiety disorder, unspecified; F32.9 Major depressive disorder, single episode, unspecified; G47.30 Sleep apnea, unspecified; Z79.84 Long term (current) use of oral hypoglycemic drugs; K76.0 Fatty (change of) liver, not elsewhere classified; E55.9 Vitamin D deficiency, unspecified; Z99.81 Dependence on supplemental oxygen; Z98.891 History of uterine scar from previous surgery; Z98.51 Tubal ligation status; Z87.891 Personal history of nicotine dependence; Z82.3 Family history of stroke; Z83.6 Family history of other diseases of the respiratory system; Z82.49 Family history of ischemic heart disease and other diseases of the circulatory system

== ENCOUNTER → 2017-12-13 | Outpatient (CLI) | payer OTHER ==
[~2017-12-13] MED LIST changes: +DOXYCYCLINE100 M3 PO; +KEFLEX500 M1 PO; +OXYCODONE HCL5 MG PO
== END | disposition home or self-care (01) ==
LOC: WOUNDCARE 00:11
DX: S31.001A Unspecified open wound of lower back and pelvis with penetration into retroperitoneum, initial encounter (principal); L02.212 Cutaneous abscess of back [any part, except buttock and flank]; E11.22 Type 2 diabetes mellitus with diabetic chronic kidney disease; I12.9 Hypertensive chronic kidney disease with stage 1 through stage 4 chronic kidney disease, or unspecified chronic kidney disease; N18.9 Chronic kidney disease, unspecified; E66.01 Morbid (severe) obesity due to excess calories; E55.9 Vitamin D deficiency, unspecified; Z68.41 Body mass index [BMI] 40.0-44.9, adult; Z87.891 Personal history of nicotine dependence; X58.XXXA Exposure to other specified factors, initial encounter; Y93.89 Activity, other specified; Y92.89 Other specified places as the place of occurrence of the external cause; Y99.8 Other external cause status

== ENCOUNTER → 2018-01-07 | Outpatient (CLI) | payer OTHER | END | disposition home or self-care (01) | LOC: RAD 11:12 | DX: M50.323 Other cervical disc degeneration at C6-C7 level (principal) ==

== ENCOUNTER 2018-01-30 15:37 | Emergency (ER) | payer OTHER ==
[~2018-01-30] VITALS: Wt 127.0 kg
--- NOTE | ~2018-01-30 | EKG ---
[place], [place] ELECTROCARDIOGRAM REPORT NAME: [facility] [facility] UNIT #: [id number] ROOM: DOCTOR: EPIPHANY DRAFT REPORT BIRTHDATE: [birth year] [facility] Test Date: 2018-01-30 Test Time: 17:31:33 Pat Name: ARLET BE[facility] Department: Room: Gender: F Dispute Resolution Analyst: : 1960 Requested By: ARIAS VAZQUEZ Order Number: [id number] Reading MD: Louisa Vazquez MD Measurements Intervals [place] Rate: 95 P: 83 [place]: 145 QRS: 70 QRSD: 92 T: 42 QT: 339 QTc: 426 Interpretive Statements Sinus rhythm Normal ECG Electronically Signed On 02-01-2018 7:47:06 PDT by Louisa Vazquez MD CM:EKGRPT:ELECTROCARDIOGRAM REPORT [id number] ARIAS VAZQUEZ EPIPHANY DRAFT REPORT ARIAS VAZQUEZ
[2018-01-30 17:40] LABS: BASO % 0.5 % (0.0-1.0); EOS # 0.2 10*3/uL (0.0-0.4); EOS % 1.7 % (1.0-4.0); HEMATOCRIT 35.3 % (37.0-47.0); HEMOGLOBIN 11.2 g/dl (12.0-16.0); LYMPH # 1.9 10*3/uL (1.3-4.4); LYMPH % 22.2 % (27.0-41.0); MEAN CELL VOLUME 91.2 fl (81.0-99.0); MEAN CORPUSCULAR HGB 28.9 pg (27.0-31.0); MEAN CORPUSCULAR HGB CONC 31.7 g/dl (33.0-37.0); MEAN PLATELET VOLUME 9.8 fl (9.6-12.3); MONO # 0.7 10*3/uL (0.1-1.0); MONO % 7.8 % (3.0-9.0); NEUT # 5.9 10*3/uL (2.3-7.9); NEUT % 67.3 % (47.0-73.0); PLATELET COUNT AUTOMATED 203 10*3/uL (130-400); RED BLOOD COUNT 3.87 10*6/uL (4.10-5.10); RED CELL DISTRI WIDTH 12.9 % (0-14.5); WHITE BLOOD COUNT 8.7 10*3/uL (4.8-10.8)
[2018-01-30 17:55] LABS: ALBUMIN 4.1 gm/dl (3.1-4.5); CREATININE 1.5 mg/dL (0.55-1.02); POTASSIUM 4.3 mmol/L (3.5-5.1); TOTAL PROTEIN 8.6 gm/dL (6.4-8.2)
== END 2018-01-30 19:35 | disposition home or self-care (01) ==
LOC: ED 15:37
PROVIDERS: Nurse Practitioner
DX: S82.832A Other fracture of upper and lower end of left fibula, initial encounter for closed fracture (principal); S82.092A Other fracture of left patella, initial encounter for closed fracture; S82.142A Displaced bicondylar fracture of left tibia, initial encounter for closed fracture; R55 Syncope and collapse; Z79.899 Other long term (current) drug therapy; Z87.891 Personal history of nicotine dependence; X58.XXXA Exposure to other specified factors, initial encounter; Y93.89 Activity, other specified; Y92.89 Other specified places as the place of occurrence of the external cause; Y99.8 Other external cause status

== ENCOUNTER → 2018-05-01 | Outpatient (CLI) | payer OTHER | END | disposition home or self-care (01) | LOC: RAD 09:32 | DX: M51.26 Other intervertebral disc displacement, lumbar region (principal) ==

== ENCOUNTER 2018-06-30 13:48 | Inpatient (IN) | payer OTHER ==
--- NOTE | ~2018-06-30 | CON ---
[place], [place] REPORT OF CONSULTATION [id number] UNIT #: [id number] ROOM: 402 DOCTOR: ELDON SANCHES MDTANYA BIRTHDATE: [birth year] DOS: 07/01/2018 PULMONARY CONSULTATION, EVALUATION AND MANAGEMENT REASON FOR CONSULTATION: Assess the patient's current symptoms of shortness of breath and exacerbation of COPD. HISTORY OF PRESENT ILLNESS: This is a 58-year-old white female patient who has been known to me with past history of obstructive sleep apnea disorder as well as COPD and bronchial asthma. She has been seen in the office regularly, presented to the Emergency Room on the date of 06/30/2018. The patient developed symptoms of progressive shortness breath, which has been occurring for the last few days. The symptoms have worsened gradually and described to be severe. She has been started with initially cough with chest congestion, yellow sputum expectoration later on and currently noted with moderate to severe nonproductive cough. The patient's symptoms have been noted worsened, associated with wheezing as well with the tightness in the chest. There was no chest pain reported. There were no symptoms of hemoptysis reported by the patient. She has been currently admitted to the hospital for the medical management of acute exacerbation of COPD and bronchial asthma. REVIEW OF SYSTEMS: CONSTITUTIONAL SYMPTOMS: Fatigue and tiredness reported without any symptoms of fever or chills. EYES: Denies any burning, redness, or tenderness. EARS, NOSE, AND THROAT: Denies any symptoms of epistaxis. Noted some nasal congestion and postnasal drainage. Denies symptoms of sore throat or hoarseness. There was no otalgia. CARDIOVASCULAR SYSTEM: Denies anginal pain, edema, pain of lower extremity, or palpitation. GASTROINTESTINAL SYMPTOMS: Denies dysphagia, nausea, vomiting, diarrhea, abdominal pain, hematemesis, melena, or hematochezia. GENITOURINARY SYMPTOMS: Denies dysuria, suprapubic pain, or hematuria. MUSCULOSKELETAL SYMPTOMS: No acute joint pain, redness, or tenderness. SKIN: Without any lesions or rashes reported. CENTRAL NERVOUS SYSTEM: Lightheadedness noted on admission, resolved. No symptoms of focal neurologic deficit or syncopal episodes. Remaining systems reviewed. They were noted all negative. PAST MEDICAL HISTORY: Known as: 1. Chronic hypoxic respiratory failure, use oxygen 4 liters nasal cannula. 2. Chronic obstructive pulmonary disease. 3. Uncomplicated severe persistent bronchial asthma. 4. Acute congestive heart failure with diastolic dysfunction. 5. Type 2 diabetes mellitus. 6. Hepatic steatosis. 7. Essential hypertension. 8. Chronic obesity. 9. Sleep apnea disorder, treated with the BiPAP. 10. Vitamin D deficiency. [place], [place] REPORT OF CONSULTATION NAME: [facility] UNIT #: [id number] ROOM: 402 DOCTOR: SHER DESHPANDE MDM BIRTHDATE: [birth year] PAST SURGICAL HISTORY: 1. Ankle fracture surgery, bilateral. 2. . 3. Acute tubal ligation. 4. Tonsillectomy. SOCIAL HISTORY: The patient lives at home. She has been noted with history of tobacco use started at teenager, 2 packs of cigarettes per day until 2011. There were no history of alcohol use or illicit drug use. FAMILY HISTORY: The patient's father at a younger age at 50 years old due to complication of CVA. The mother at 74 years with complications of COPD and stroke. HOME MEDICATIONS: Use of nebulized bronchodilators, Lipitor, Jardiance, Advair, gabapentin, [place], Tradjenta, Zestoretic, metformin, omeprazole, Daliresp, sertraline, tizanidine, Incruse Ellipta, BiPAP and oxygen. CURRENT MEDICATIONS: Administered on this hospitalization were reviewed were noted as use of Solu-Medrol 60 mg b.i.d., DuoNeb q.4 hours and Rocephin as well as Zithromax. Other medications from home available on formulary were resumed. DRUG ALLERGIES: Noted with no known drug allergies. PHYSICAL EXAMINATION: GENERAL: A 58-year-old white female, currently sitting on the bed without any acute distress. Height of 5 feet 7 inches, weight of 265, BMI 41.5 consistent morbid obesity. VITAL SIGNS: Temperature 99.8 degrees Fahrenheit, respirations 17-18, heart rate 87-119 on admission, blood pressure 117/64-120/64 this morning. The pulse ox saturation on 4 liters nasal cannula 93% saturation. HEENT: Chronic obesity. Head was atraumatic. Eye nonicterus. Decreased posterior pharyngeal space. High tongue with crowding soft tissue structures. NECK: Supple. CARDIOVASCULAR: S1, S2 is audible. LUNGS: Diffuse reduction in breath sounds, expiratory wheezing, no crackles. ABDOMEN: Soft and obese. Bowel sounds present. EXTREMITIES: Without any acute edema. MUSCULOSKELETAL: Noted without any acute deformities. VISIBLE SKIN: No lesions or rashes. CENTRAL NERVOUS SYSTEM: Cranial nerves 2-12 intact. LABORATORY DATA: CBC that was done on admission yesterday as 3.2% eosinophils. WBC count 6.2. CMP: BUN 38, creatinine 1.63. Glucose 107. Remaining CMP was normal. Troponins were normal. CBC that was done this morning; WBC count normal, hemoglobin 10.6, hematocrit 34.2, platelet count was normal. The PT, PTT were noted as normal. CMP this morning; BUN was noted as 29, creatinine 1.17, glucose 142. Chest x-ray shows hyperinflation of lungs without any acute pulmonary infiltration. The patient also has a CT scan of the chest, which was [place], [place] REPORT OF CONSULTATION NAME: [facility] UNIT #: [id number] ROOM: 402 DOCTOR: ELDON SANCHES MD,TANYA BIRTHDATE: [birth year] done without contrast was reviewed as well shows no acute pulmonary findings of infiltration or nodules. IMPRESSION: The patient has been currently admitted to the hospital was noted with: 1. Acute exacerbation of chronic obstructive pulmonary disease, acute tracheobronchitis, and chronic hypoxic respiratory failure. 2. Obstructive sleep apnea disorder. 3. Morbid obesity. 4. Past history of nicotine abuse until 2011. PLAN OF MANAGEMENT: The patient will be continued on Solu-Medrol, bronchodilator, and antibiotic. Cough has been noted currently moderate to severe, nonproductive. Consideration of fiberoptic bronchoscopy on Tuesday morning if the cough remains persistent. Other therapy, plan of management, care plan to be continued as in progress. No other additional changes will be made at this time. Change in treatment could be made based on the availability of any new information relevant the management of the current acute respiratory condition. TANYA COLÓN MD CM:CONSTR:REPORT OF CONSULTATION 1613 07/02/18 0211 interface
--- NOTE | ~2018-06-30 | EKG ---
[place], [place] ELECTROCARDIOGRAM REPORT NAME: [facility] UNIT #: [id number] ROOM: 402 DOCTOR: EPIPHANY DRAFT REPORT BIRTHDATE: [birth year] [facility] Test Date: 2018-06-30 Test Time: 14:04:32 Pat Name: EST[facility] Department: Room: 402 Gender: F Stylist Apprentice: Estephania Valiente : 1960 Requested By: HAYDEE VAZQUEZ Order Number: [id number] Reading MD: Louisa Vazquez MD Measurements Intervals [place] Rate: 115 P: 75 AL: 144 QRS: 66 QRSD: 89 T: 31 QT: 303 QTc: 419 Interpretive Statements Sinus tachycardia Compared to ECG 01/30/2018 17:31:33 Sinus rhythm no longer present Electronically Signed On 07-06-2018 23:52:32 PST by Louisa Vazquez MD CM:EKGRPT:ELECTROCARDIOGRAM REPORT 1404 [id number] HAYDEE VAZQUEZ EPIPHANY DRAFT REPORT HAYDEE VAZQUEZ
--- NOTE | ~2018-06-30 | PR ---
[place], [place] PROGRESS NOTE NAME: [facility] UNIT #: [id number] ROOM: 402 DOCTOR: ELDON SANCHES MD,TANYA BIRTHDATE: [birth year] DOS: 07/03/2018 SUBJECTIVE: The patient has been noted essentially same of yesterday with nonproductive cough, here for bronchoscopy, n.p.o. past midnight status, shortness of breath, which occurred with exertion. Wheezing was also reported and with wheezing, there were no symptoms of chest pain, hemoptysis. Denies symptoms of headache or diplopia. Denies symptoms of nausea, vomiting, or diarrhea. Pain of the lower extremity with an edema. Remaining systems reviewed were noted all negative. OBJECTIVE: VITAL SIGNS: For the patient which were recorded this morning, normal temperature, respiratory rate 24-78, blood pressure 136/78-126/56. Pulse oxygen saturation on 4 liters nasal cannula 92% saturation. HEENT: Examination shows head was atraumatic. Eyes nonicterus. NECK: Supple. It was obese. CARDIOVASCULAR SYSTEM: S1, S2 audible. LUNGS: Noted without any crackles. Moderate decreased breath sounds with expiratory wheezing. ABDOMEN: Soft and obese. EXTREMITIES: The patient with chronic obesity. VISIBLE SKIN: No lesions or rashes. MUSCULOSKELETAL: Without acute deformities. CENTRAL NERVOUS SYSTEM: Intact. LABORATORY DATA: BMP today showed BUN 26, creatinine 1.11. The culture of the sputum noted gram-negative bacilli with light growth, pending identification sensitivities. IMPRESSION: 1. Ongoing tracheobronchitis with possibility of gram-negative bacilli, severe tracheobronchitis, persistent nonproductive symptoms. 2. Chronic obesity as well. 3. Acute exacerbation of chronic obstructive pulmonary disease. 4. Chronic hypoxic respiratory failure. PLAN OF MANAGEMENT: Proceed with the fibrobronchoscopy as planned. Other therapy, plan of management to be continued. Any modification treatment if necessary will be ordered after the bronchoscopy. However, the antibiotic spectrum will be seen for the coverage of gram-negative infection at this time. The patient was also noted with gram-negative bacilli bacteremia, rule out contamination versus stool impaction, continued to be treated with the intravenous antibiotic. The surveillance cultures were ordered. [place], [place] PROGRESS NOTE NAME: [facility] UNIT #: [id number] ROOM: 402 DOCTOR: TANYA DESHPANDE MD BIRTHDATE: [birth year] TANYA COLÓN MD CM:PNTRANS [phone] [id number] TANYA SANCHES MD 07/03/182310 interface
--- NOTE | ~2018-06-30 | PR ---
[place], [place] PROGRESS NOTE [id number] UNIT #: [id number] ROOM: 402 DOCTOR: ELDON SANCHES MD,TANYA BIRTHDATE: [birth year] DOS: 07/02/2018 PULMONARY PROGRESS NOTE SUBJECTIVE: Still noted with cough, which has been noted severe and nonproductive at the present time. Only minimal sputum expectoration described at times. Shortness of breath is noted with exertion. Denies symptoms of fever or chills. Denies symptoms of hemoptysis. Denies headache or diplopia. Denies symptoms of edema or pain in the lower extremities. Continued on oxygen supplementation. The patient had not been started on home BiPAP yesterday night. Remaining systems were reviewed, they were noted all negative. OBJECTIVE: VITAL SIGNS: Normal temperature, respiratory rate 20, heart rate 98, blood pressure 127/68. The pulse oxygen saturation was recorded as 93% saturation on 4 liters nasal cannula. HEENT: Chronic obesity. NECK: Supple. CARDIOVASCULAR: S1 and S2 audible. LUNGS: The patient was noted with decreased breath sounds and expiratory wheezing. No crackles. ABDOMEN: Soft and nontender. Bowel sound is present. EXTREMITIES: Showed chronic obesity without any edema. MUSCULOSKELETAL: Without any acute deformities. Cranial nerves 2-12 intact. LABORATORY DATA: Culture of the blood in the anaerobic bottle, gram-positive cocci in pairs and clusters were reported, final results are pending. BMP this morning, BUN 32, creatinine 1.12, glucose 113, remaining electrolytes were normal. CBC this morning, normal WBC count, hemoglobin 11, hematocrit 35.5, platelet count 222,000. IMPRESSION: 1. The patient with acute exacerbation of chronic obstructive pulmonary disease with chronic hypoxic respiratory failure. 2. Acute tracheobronchitis. 3. Acute exacerbation of bronchial asthma. 4. Gram-positive cocci bacteremia in 1/4 bottles, possibility of contamination versus stool infection remains in consideration. PLAN OF THERAPY: Monitor current culture results. Continue antibiotics, bronchodilator, and current dose of corticosteroids. Obtain another set of cultures. Starting antibiotic with vancomycin until the culture results will be available. Other additional treatment changes will be made for the patient based on the progression of the illness. N.p.o. past midnight for bronchoscopy that is planned to be done tomorrow morning. Other therapy, plan of management, care plan for the patient at this time as well. Usual care. BiPAP use at nighttime is recommended. Titrate oxygen supplement at this time to maintain pulse ox saturation of 92% or greater. Repeat cultures of blood will be [place], [place] PROGRESS NOTE NAME: [facility] UNIT #: [id number] ROOM: 402 DOCTOR: ELDON SANCHES MD,TANYA BIRTHDATE: [birth year] obtained today prior to starting the patient on antibiotics. TANYA COLÓN MD CM:PNTRANS [id number] TANYA SANCHES MD 07/02/18 2335 interface
--- NOTE | ~2018-06-30 | EKG ---
[place], [place] ELECTROCARDIOGRAM REPORT NAME: [facility] UNIT #: [id number] ROOM: 402 DOCTOR: ALINA DRAFT REPORT BIRTHDATE: [birth year] [facility] Test Date: 2018-07-01 Test Time: 13:20:21 Pat Name: [facility] Department: Room: 402 2 Gender: F [employer] Operator: : 1960 Requested By: TANYA SANCHES Order Number: [id number] Reading MD: Tanya Woods MD Measurements Intervals [place] Rate: 78 P: 55 CO: 159 QRS: 57 QRSD: 87 T: 47 QT: 382 QTc: 436 Interpretive Statements Sinus rhythm Baseline wander in lead(s) V4,V5 Compared to ECG 01/30/2018 17:31:33 No significant changes Electronically Signed On 07-02-2018 13:11:18 PST by Tanya Woods MD CM:EKGRPT:ELECTROCARDIOGRAM REPORT 1320 [id number] TANYA FULLER DRAFT REPORT TANYA SANCHES MD
--- NOTE | ~2018-06-30 | PROC NOTE ---
[place], [place] PROCEDURE NOTE NAME: [facility] UNIT #: [id number] ROOM: 402 DOCTOR: ELDON SANCHES MD,TANYA BIRTHDATE: [birth year] DOS: 07/03/2018 PROCEDURE: Bronchoscopy. PREOPERATIVE DIAGNOSIS: Persistent severe nonresolving cough with maximal medical management. POSTOPERATIVE DIAGNOSES: Removal of the moderate amount of mucus impaction major airway bilaterally, greater on the left than the right endobronchial tree. There were no endobronchial obstructive lesion. FINDINGS: Acute tracheobronchitis also noted. PROCEDURE DESCRIPTION: Informed consent obtained for the patient. She was brought to the OR and placed in supine position. Conscious sedation administered by the Anesthesia Department. After achieving proper sedation, airway introduced into the mouth. Bronchoscope advanced to the airway into laryngeal area. Epiglottis and vocal cord seen. Vocal cords were moving symmetrically with movements. Bronchoscope advanced to vocal cord and tracheal lumen. The tracheal lumen was noted without any lesions. Moderate amount of thick mucus secretion present with small purulent suctioned out lissett level. Endobronchial tree mucus impaction noted in endobronchial tree bilateral subsegments, greater on the left than the right side. Mucus impacting cleared from the left upper, left lobe, lingula, right upper, right middle, and right lower lobe. Procedure well tolerated by the patient. Postoperative findings were discussed briefly after the surgery. TANYA COLÓN MD CM:PROCNOTE:PROCEDURE NOTE [id number] TANYA SANCHES MD
--- NOTE | ~2018-06-30 | PR ---
[place], [place] PROGRESS NOTE NAME: [facility] UNIT #: [id number] ROOM: 402 DOCTOR: TANYA DESHPANDE MD BIRTHDATE: [birth year] DOS: 07/05/2018 PULMONARY PROGRESS NOTE SUBJECTIVE: The patient has been noted comfortable at this time without any acute distress. She continues to have reduction and improvement in respiratory symptoms. The coughing has been improving progressively. She was started on Levaquin yesterday for medical management of gram-negative acute bronchitis. OBJECTIVE: VITAL SIGNS: Normal temperature, respiratory rate 18, heart rate of 60, blood pressure 151/72. Pulse oxygen saturation was recorded on 4 liters nasal cannula as 95% saturation. HEENT: No acute change. NECK: Supple. It was obese. CARDIOVASCULAR SYSTEM: S1 and S2 audible. LUNGS: The patient was noted with moderate decreased breath sounds without any wheezing today. ABDOMEN: Soft and nontender. EXTREMITIES: No acute edema. LABORATORY DATA: Culture of the bronchial washing was identified again as gram-negative infection as previously, organisms as Enterobacter aerogenes, it was noted sensitive to fluoroquinolones. IMPRESSION: 1. Resolving acute exacerbation of chronic obstructive pulmonary disease at the present time. 2. Acute gram-negative infection as well, responding to current treatment. 3. Chronic obesity. 4. Chronic hypoxic respiratory failure and sleep apnea disorder. PLAN OF TREATMENT: The patient will be discharged on tapering dose of prednisone and oral Levaquin 750 mg for additional 9 days of treatment. Other therapy, plan of management, care plan and treatment. Outpatient followup will be recommended for this patient post-discharge. [place], [place] PROGRESS NOTE NAME: [facility] UNIT #: [id number] ROOM: 402 DOCTOR: TANYA DESHPANDE MD BIRTHDATE: [birth year] TANYA COLÓN MD CM:PNTRANS [phone] TANYA SANCHES MD 07/06/18 0006 interface
--- NOTE | ~2018-06-30 | PR ---
[place], [place] PROGRESS NOTE NAME: [facility] [id number] UNIT #: [id number] ROOM: 402 DOCTOR: ELDON SANCHES MD,TANYA BIRTHDATE: [birth year] DOS: 07/04/2018 PULMONARY PROGRESS NOTE SUBJECTIVE: The patient has been noted comfortable at this time without any acute distress, resting comfortably on the bed. Coughing has been decreasing. Bronchoscopy was completed yesterday. The cough has not completely resolved, but certainly decreased. Denies symptoms of chest pain, fever or chills. Denies symptoms of hemoptysis, nausea, vomiting, diarrhea, or abdominal pain. Symptoms of shortness of breath occurs with exertion, but not present at rest. Remaining systems were reviewed, they were noted all negative. PHYSICAL EXAMINATION: VITAL SIGNS: Normal temperature, respiratory rate 16, heart rate 72, blood pressure 121/69 with pulse oxygen saturation on 4 liters nasal cannula 92% saturation. HEENT: Chronic obesity. Head was atraumatic. NECK: Supple. CARDIOVASCULAR: S1 and S2 audible. LUNGS: Moderate decreased breath sounds with occasional wheezing. No crackles. ABDOMEN: Soft, nontender. Bowel sounds present. EXTREMITIES: Without any acute edema. MUSCULOSKELETAL: Without any acute deformities. CENTRAL NERVOUS SYSTEM: Intact. LABORATORY DATA: BMP, BUN 22, creatinine 1.10, other electrolytes were normal. CBC this morning, WBC count normal, hemoglobin 10.4, and platelet count was normal. The culture of the sputum was noted with gram-negative bacilli as Enterobacter aerogenes, noted intermediate sensitivity to Zosyn and sensitivity was noted to fluoroquinolones. IMPRESSION: The patient with acute exacerbation of chronic obstructive pulmonary disease with acute bronchitis, gram-negative infection, chronic hypoxic respiratory failure. Overall debility was noted with some muscle deconditioning. Blood culture on admission was noted with Staph epidermidis, most likely can be considered skin contaminant rather than true infection. The surveillance culture, which was done on 07/03/2018, showed no bacterial growth. PLAN OF MANAGEMENT: The patient will be switched to high dose of Levaquin at the present time. Monitor cultures of the bronchial washing, it was showing light growth of gram-negative bacilli as well in the preliminary culture results, final culture results are pending. Gram stain was noted with many white blood cells, few epithelial cells, and rare gram-positive cocci in pairs. Continuation of the bronchodilators, oxygen supplementation, corticosteroids, and other medical treatment. Discontinue IV vancomycin as the current blood culture would be considered contaminant of the skin rather than true infection. Oral fluoroquinolones will be started. Other therapy and plan of management as well. Possible discharge in the morning after the final culture results [place], [place] PROGRESS NOTE NAME: [facility] UNIT #: [id number] ROOM: 402 DOCTOR: TANYA DESHPANDE MD BIRTHDATE: [birth year] availability. TANYA COLÓN MD CM:PNTRANS [id number] TANYA SANCHES MD 07/04/18 2345 interface
[2018-06-30 13:49] VITALS: BP 117/64
[2018-06-30 14:13] LABS: BASO % 0.6 % (0.0-1.0); EOS # 0.2 10*3/uL (0.0-0.4); EOS % 3.2 % (1.0-4.0); HEMATOCRIT 37.4 % (37.0-47.0); HEMOGLOBIN 11.7 g/dl (12.0-16.0); LYMPH % 15.5 % (27.0-41.0); MEAN CELL VOLUME 90.8 fl (81.0-99.0); MEAN CORPUSCULAR HGB 28.4 pg (27.0-31.0); MEAN CORPUSCULAR HGB CONC 31.3 g/dl (33.0-37.0); MEAN PLATELET VOLUME 9.7 fl (9.6-12.3); MONO # 0.6 10*3/uL (0.1-1.0); MONO % 10.1 % (3.0-9.0); NEUT # 4.4 10*3/uL (2.3-7.9); NEUT % 70.3 % (47.0-73.0); PLATELET COUNT AUTOMATED 183 10*3/uL (130-400); RED BLOOD COUNT 4.12 10*6/uL (4.10-5.10); RED CELL DISTRI WIDTH 13.9 % (0-14.5); WHITE BLOOD COUNT 6.2 10*3/uL (4.8-10.8)
--- NOTE | 2018-06-30 14:24 | NUR ---
SOLU-MEDROL GIVEN BY CON HEREDIA
[2018-06-30 14:33] LABS: ALBUMIN 3.7 gm/dl (3.1-4.5); ALKALINE PHOSPHATASE 102 U/L (45-117); BUN 38 mg/dl (7-24); CHLORIDE 104 mmol/L (98-107); CREATININE 1.63 mg/dL (0.55-1.02); SGOT/AST 18 IU/L (3-35); SGPT/ALT 27 U/L (12-78); SODIUM 136 mmol/L (136-145); TOTAL PROTEIN 8.8 gm/dL (6.4-8.2)
[2018-06-30 14:36] LABS: TROPONIN I < 0.015 ng/ml (<0.045)
[2018-06-30 15:20] VITALS: BP 115/55
--- NOTE | 2018-06-30 15:20 | NUR ---
A 58, admitted to , under the services of ODESSA Pierce DO with a diagnosis of COPD EXACERBATION, ACUTE KIDNEY INJURY. Chief complaint is SOB, COUGH. Patient arrived via BED from ER. Monitor applied. Initial assessment completed. Vital signs taken and recorded. ODESSA PIERCE DO notified of admission to the unit. Orders received. See assessment for past medical history, medications and allergies. Patient and/or family oriented to unit. [facility] visitation policy reviewed. Clothing/patient valuable form completed. ANDIE ALAS
[2018-06-30] MEDS ORDERED: INCRUSE ELLI62.5 MCG INH (15:59)
[2018-06-30] MEDS ORDERED: METFORMIN HYD1000 MG PO (16:01)
[2018-06-30] MEDS ORDERED: HYDROCODONE-AC1 EAC1 PO (16:03)
[2018-06-30] MEDS ORDERED: ZESTORETIC 20-1 EACH PO (16:04)
[2018-06-30] MEDS ORDERED: TIZANIDINE2 MG PO (16:06)
--- NOTE | 2018-06-30 16:23 | NUR ---
DR. COLÓN CALLED AT THIS TIME AND MADE AWARE OF NEW CONSULT. ORDERED FOR PATIENT TO WEAR BIPAP AT NIGHT WITH SETTING OF 31/01.
--- NOTE | 2018-06-30 18:15 | NUR ---
MED REC UP TO DATE WITH LIST PROVIDED BY PATIENT.
--- NOTE | 2018-06-30 19:12 | NUR ---
PATIENT SITTING UP ON SIDE OF BED. DENIES ANY NEEDS OR COMPLAINTS. BED IS IN LOWEST POSITION WITH WHEELS LOCKED. CALL LIGHT IS WITHIN REACH. ENCOURAGED TO USE CALL LIGHT FOR NEEDS.
[2018-06-30 20:00] VITALS: BP 118/75
[2018-07-01] VITALS: BP 139/59; BP 144/79
--- NOTE | 2018-07-01 03:07 | NUR ---
PATIENT RESTING IN BED AT THIS TIME WITH EYES CLOSED. RESPIRATIONS ARE EASY AND REGULAR. NO DISTRESS IS NOTED. CALL LIGHT IS WITHIN REACH. ENCOURAGED TO USE CALL LIGHT FOR NEED. WILL CONTINUE TO MONITOR.
[2018-07-01 06:44] LABS: HEMATOCRIT 34.2 % (37.0-47.0); HEMOGLOBIN 10.6 g/dl (12.0-16.0); LYMPH # 0.5 10*3/uL (1.3-4.4); LYMPH % 7.8 % (27.0-41.0); MEAN CELL VOLUME 89.8 fl (81.0-99.0); MEAN CORPUSCULAR HGB 27.8 pg (27.0-31.0); MEAN PLATELET VOLUME 10.9 fl (9.6-12.3); MONO # 0.2 10*3/uL (0.1-1.0); MONO % 3.4 % (3.0-9.0); NEUT # 5.2 10*3/uL (2.3-7.9); NEUT % 88.3 % (47.0-73.0); PLATELET COUNT AUTOMATED 183 10*3/uL (130-400); RED BLOOD COUNT 3.81 10*6/uL (4.10-5.10); RED CELL DISTRI WIDTH 13.9 % (0-14.5); WHITE BLOOD COUNT 5.9 10*3/uL (4.8-10.8)
[2018-07-01 06:58] LABS: ALBUMIN 3.4 gm/dl (3.1-4.5); CREATININE 1.17 mg/dL (0.55-1.02); PHOSPHOROUS 2.4 mg/dL (2.5-4.9); TOTAL PROTEIN 8.4 gm/dL (6.4-8.2)
[2018-07-01 07:04] LABS: THYROID STIM HORMONE (HS) 0.741 uIU/ml (0.358-4.75)
[2018-07-01 07:56] LABS: VITAMIN D, 25-HYDROXY 18.9 ng/mL (30-100)
[2018-07-01 08:00] VITALS: BP 128/64
--- NOTE | 2018-07-01 08:00 | NUR ---
PT NOT ON BIPAP AT THIS TIME
--- NOTE | 2018-07-01 09:50 | NUR ---
MEDICATED WITH PRN PO NORCO FOR HEAD/NOSE/THROAT PAIN, ZANAFLEX FOR BODY ACHES/CRAMPS, AND TESSELON PEARLES FOR NONPRODUCTIVE COUGH/CONGESTION.
--- NOTE | 2018-07-01 10:45 | NUR ---
PRN PO NORCO AND FLEXERIL EFFECTIVE, PER PATIENT.
[2018-07-01 12:00] VITALS: BP 96/54
[2018-07-01 16:00] VITALS: BP 110/52
--- NOTE | 2018-07-01 17:05 | NUR ---
MEDICATED WITH PRN PO TESSELON PEARLES FOR NONPRODUCTIVE COUGH/CONGESTION.
--- NOTE | 2018-07-01 18:57 | NUR ---
DR. ZAMARRIPA NOTIFIED OF BLOOD CULTURE RESULT FROM YESTERDAY.
--- NOTE | 2018-07-01 19:26 | NUR ---
PATIENT RESTING IN BED WITH HOME BIPAP IN PLACE AT THIS TIME. DENIES ANY NEEDS OR COMPLAINTS. BED IS IN LOWEST POSITION WITH WHEELS LOCKED. CALL LIGHT IS WITHIN REACH. WILL MONITOR. ENCOURAGED TO USE CALL LIGHT FOR NEEDS.
[2018-07-01 20:00] VITALS: BP 93/53
--- NOTE | 2018-07-01 21:09 | NUR ---
PRN NORCO GIVEN FOR COMPLAINTS OF PAIN. WILL EVALUATE EFFECTIVENESS. CALL LIGHT IS WITHIN REACH. WILL MONITOR.
--- NOTE | 2018-07-01 22:16 | NUR ---
PATIENT STATES NORCO EFFECTIVE FOR PAIN RELIEF.
[2018-07-02] VITALS: BP 103/53
[2018-07-02 07:15] LABS: BASO % 0.2 % (0.0-1.0); HEMATOCRIT 35.5 % (37.0-47.0); LYMPH # 0.9 10*3/uL (1.3-4.4); LYMPH % 11.2 % (27.0-41.0); MEAN CELL VOLUME 91.3 fl (81.0-99.0); MEAN CORPUSCULAR HGB 28.3 pg (27.0-31.0); MEAN PLATELET VOLUME 10.5 fl (9.6-12.3); MONO # 0.8 10*3/uL (0.1-1.0); MONO % 9.3 % (3.0-9.0); NEUT # 6.4 10*3/uL (2.3-7.9); NEUT % 78.6 % (47.0-73.0); PLATELET COUNT AUTOMATED 222 10*3/uL (130-400); RED BLOOD COUNT 3.89 10*6/uL (4.10-5.10); RED CELL DISTRI WIDTH 14.3 % (0-14.5); WHITE BLOOD COUNT 8.1 10*3/uL (4.8-10.8)
[2018-07-02 07:25] LABS: CHLORIDE 106 mmol/L (98-107); POTASSIUM 4.4 mmol/L (3.5-5.1); SODIUM 137 mmol/L (136-145)
[2018-07-02 07:34] LABS: BUN 32 mg/dl (7-24); CREATININE 1.12 mg/dL (0.55-1.02)
[2018-07-02 08:00] VITALS: BP 121/75
--- NOTE | 2018-07-02 10:10 | NUR ---
PT MEDICATED WITH PO NORCO PER PRN ORDER FOR C/O BACK PAIN. CHRONIC PAIN PER PT. RATES PAIN 01/27. WILL MONITOR EFFECTIVENESS.
--- NOTE | 2018-07-02 11:19 | NUR ---
SPUTUM SENT PER ORDER.
--- NOTE | 2018-07-02 11:19 | NUR ---
SPUTUM SENT PER ORDER.
--- NOTE | 2018-07-02 11:27 | NUR ---
NORCO RELIEVING PAIN PER PT. WILL CONTINUE TO MONITOR.
--- NOTE | 2018-07-02 11:28 | NUR ---
BSG 113. NO INSULIN GIVEN PER SLIDING SCALE.
[2018-07-02 12:00] VITALS: BP 127/68
--- NOTE | 2018-07-02 14:42 | NUR ---
TYLENOL GIVEN PER PRN ORDER FOR C/O RASMUSSEN. WILL MONITOR EFFECTIVENESS.
[2018-07-02 16:00] VITALS: BP 116/56
--- NOTE | 2018-07-02 16:00 | NUR ---
EARLIER TYLENOL RELIEVING HEADACHE. WILL CONTINUE TO MONITOR.
--- NOTE | 2018-07-02 19:18 | NUR ---
PATIENT SITTING UP IN BED WATCHING TV. 4L O2 VIA NC IN PLACE. DENIES ANY NEEDS OR COMPLAINTS AT THIS TIME. BED IS IN LOWEST POSITION WITH WHEELS LOCKED. CALL LIGHT IS WITHIN REACH. ENCOURAGED TO USE CALL LIGHT FOR NEEDS. WILL MONITOR.
--- NOTE | 2018-07-02 19:45 | NUR ---
SPOKE WITH DR HERNANDEZ REGARDING PATIENT REQUEST FOR COUGH DROPS FOR DEVELOPING SORE THROAT. PER DR HERNANDEZ PLACE ORDERS FOR CEPACOL DROPS. NO FURTHER ORDERS AT THIS TIME.
[2018-07-02 20:00] VITALS: BP 142/70
--- NOTE | 2018-07-02 21:14 | NUR ---
PRN NORCO AND CEPACHOL DROP GIVEN FOR COMPLAINTS OF BACK BACK RATED 6/10 AND SORE THROAT. WILL EVALUATE EFFECTIVENESS. CALL LIGHT IS WITHIN REACH.
--- NOTE | 2018-07-02 22:13 | NUR ---
PRN RESTORIL GIVEN FOR COMPLAINTS OF INSOMNIA. WILL EVALUATE EFFECTIVENESS. CALL LIGHT IS WITHIN REACH. PATIENT STATES NORCO AND CEPACOL DROP EFFECTIVE. NO FURTHER NEEDS AT THIS TIME.
--- NOTE | 2018-07-02 23:29 | NUR ---
RESTORIL EFFECTIVE. PATIENT RESTING IN BED WITH EYES CLOSED. BIPAP IN PLACE. RESPIRATIONS ARE EASY AND REGULAR. NO DISTRESS IS NOTED. WILL CONTINUE TO MONITOR. CALL LIGHT IS WITHIN REACH.
[2018-07-03] VITALS (8 sets, daily range): BP systolic 94–145; BP diastolic 56–116
--- NOTE | 2018-07-03 04:09 | NUR ---
PATIENT RESTING IN BED SUPINE WITH EYES CLOSED. BIPAP IN PLACE. RESPIRATIONS ARE EASY AND REGULAR. NO DISTRESS IS NOTED. CALL LIGHT IS WITHIN REACH. WILL MONITOR.
[2018-07-03 06:29] LABS: BASO % 0.3 % (0.0-1.0); HEMATOCRIT 38.3 % (37.0-47.0); HEMOGLOBIN 11.8 g/dl (12.0-16.0); LYMPH # 0.9 10*3/uL (1.3-4.4); LYMPH % 12.1 % (27.0-41.0); MEAN CELL VOLUME 93.6 fl (81.0-99.0); MEAN CORPUSCULAR HGB 28.9 pg (27.0-31.0); MEAN CORPUSCULAR HGB CONC 30.8 g/dl (33.0-37.0); MEAN PLATELET VOLUME 10.3 fl (9.6-12.3); MONO # 0.7 10*3/uL (0.1-1.0); MONO % 9.2 % (3.0-9.0); NEUT # 5.9 10*3/uL (2.3-7.9); NEUT % 76.2 % (47.0-73.0); NUCLEATED RED BLOOD CELL 0.3 % (0.0-0.0); PLATELET COUNT AUTOMATED 225 10*3/uL (130-400); RED BLOOD COUNT 4.09 10*6/uL (4.10-5.10); RED CELL DISTRI WIDTH 14.2 % (0-14.5); WHITE BLOOD COUNT 7.7 10*3/uL (4.8-10.8)
[2018-07-03 06:50] LABS: BUN 26 mg/dl (7-24); CHLORIDE 104 mmol/L (98-107); CREATININE 1.11 mg/dL (0.55-1.02); POTASSIUM 4.3 mmol/L (3.5-5.1); SODIUM 139 mmol/L (136-145)
--- NOTE | 2018-07-03 07:44 | NUR ---
PATIENT LEFT FLOOR FOR BRONCH AT THIS TIME.
--- NOTE | 2018-07-03 10:14 | NUR ---
PT GIVEN NORCO FOR 6 OUT OF 10 PAIN IN HEAD. WILL ASSESS EFFECITIVENESS.
--- NOTE | 2018-07-03 10:41 | NUR ---
NORCO FOR 6 OUT OF 10 PAIN WAS EFFECTIVE. PT STATES PAIN IS NOW A 3. PT RESTING COMFORTABLY.
--- NOTE | 2018-07-03 11:00 | NUR ---
Salesperson [employer] in to talk to patient. Patient states lives at home with . There are few steps in the home. Physician: augustina crook [facility]acy: [facility] Home health services: none Patient's level of ADLs: BEDFAST Patient has working utilities: all working DME: home oxygen, portable tanks, nebulizer, cpap [facility] Follow-up physician's appointment after d/c: will be made by hospitalist nurse director upon discharge Does patient want to access PORTAL?: no Discharge plan discussed with patient, patient lives at home with , she states she is independent in adls and ambulation, patient has home oxygen, portable tanks, nebulizer and cpap at home from [facility] patient states she will be going home when able and denies any home needs. ARLET YUSUF
--- NOTE | 2018-07-03 22:31 | NUR ---
Requested and medicated with Tilden at 2030 for complaints of back pain rated a 5/10 with minimal relief later voiced. Will continue to monitor.
--- NOTE | 2018-07-03 22:45 | NUR ---
Requested and medicated with Restoril at 2200 to aid sleep. Will continue to monitor.
[2018-07-04] VITALS: BP 107/66
[2018-07-04 07:50] LABS: HEMATOCRIT 35.3 % (37.0-47.0); HEMOGLOBIN 10.4 g/dl (12.0-16.0); MEAN CELL VOLUME 93.9 fl (81.0-99.0); MEAN CORPUSCULAR HGB 27.7 pg (27.0-31.0); MEAN CORPUSCULAR HGB CONC 29.5 g/dl (33.0-37.0); MEAN PLATELET VOLUME 10.2 fl (9.6-12.3); NUCLEATED RED BLOOD CELL 0.6 % (0.0-0.0); PLATELET COUNT AUTOMATED 163 10*3/uL (130-400); RED BLOOD COUNT 3.76 10*6/uL (4.10-5.10); RED CELL DISTRI WIDTH 14.2 % (0-14.5); WHITE BLOOD COUNT 5.5 10*3/uL (4.8-10.8)
[2018-07-04 08:00] VITALS: BP 121/69
[2018-07-04 08:08] LABS: BUN 22 mg/dl (7-24); CHLORIDE 104 mmol/L (98-107); POTASSIUM 4.9 mmol/L (3.5-5.1); SODIUM 140 mmol/L (136-145)
[2018-07-04 08:11] LABS: ATYPICAL LYMPHS 2 % (0-0); PLATELET SUFFICIENCY NORMAL (NORMAL); TOTAL CELLS COUNTED 100 #CELLS
--- NOTE | 2018-07-04 10:37 | NUR ---
case management visits with patient, patient states she will be going home when able and denies any home needs
--- NOTE | 2018-07-04 10:45 | NUR ---
NORCO GIVEN FOR 6 OUT OF 10 CHRONIC BACK PAIN. WILL REASSESS FOR EFFECTIVENESS.
--- NOTE | 2018-07-04 11:15 | NUR ---
NORCO EFFECTIVE FOR 6 OUT OF 10 BACK PAIN. PATIENT RESTING COMFORTABLY.
[2018-07-04 12:00] VITALS: BP 146/74
[2018-07-04 16:00] VITALS: BP 125/95
[2018-07-04 17:07] LABS: ACID FAST SPEC PROCESSING Concentration (.)
[2018-07-04 20:00] VITALS: BP 157/74
--- NOTE | 2018-07-04 20:09 | NUR ---
IN TO ASSESS PATIENT. PATIENT ALERT AND ORIENTED X3. AMBULATORY. MILD DYSPNEA ON EXERTION PER PT. PATIENT STATES SOMEWHAT PRODUCTIVE COUGH. FAINT EXPIRATORY WHEEZE NOTED T/O LUNG BANKS. NO EDEMA NOTED. BOWEL MOVEMENT TODAY. NORMOACTIVE BOWELS X4 QUADS. DENIES N/V/D. DENIES DYSURIA. 4L NC O2 DEPENDENT. CALL LIGHT WITHIN REACH, WILL MONITOR
--- NOTE | 2018-07-04 21:14 | NUR ---
PRN RESTORIL AND NORCO GIVEN FOR PT COMPLAINTS OF BACK PAIN RATING IT 7/10 AND SLEEPLESSNESS. CALL LIGHT WITHIN REACH, WILL MONITOR
--- NOTE | 2018-07-04 23:30 | NUR ---
PRN MEDICATION APPEARS EFFECTIVE, PT SLEEPING
[2018-07-05] VITALS: BP 144/82
[2018-07-05 06:20] LABS: HEMATOCRIT 34.6 % (37.0-47.0); HEMOGLOBIN 10.5 g/dl (12.0-16.0); MEAN CELL VOLUME 93.5 fl (81.0-99.0); MEAN CORPUSCULAR HGB 28.4 pg (27.0-31.0); MEAN CORPUSCULAR HGB CONC 30.3 g/dl (33.0-37.0); MEAN PLATELET VOLUME 10.5 fl (9.6-12.3); NUCLEATED RED BLOOD CELL 0.5 % (0.0-0.0); PLATELET COUNT AUTOMATED 186 10*3/uL (130-400); RED CELL DISTRI WIDTH 14.2 % (0-14.5); WHITE BLOOD COUNT 6.4 10*3/uL (4.8-10.8)
[2018-07-05 06:45] LABS: BUN 20 mg/dl (7-24); CHLORIDE 102 mmol/L (98-107); POTASSIUM 4.8 mmol/L (3.5-5.1); SODIUM 139 mmol/L (136-145)
[2018-07-05 06:55] LABS: TOTAL CELLS COUNTED 100 #CELLS
[2018-07-05 06:56] LABS: OVALOCYTES FEW; PLATELET SUFFICIENCY NORMAL (NORMAL)
[2018-07-05 08:00] VITALS: BP 151/72
--- NOTE | 2018-07-05 08:08 | NUR ---
PT MEDICATED WITH PO NORCO PER PRN ORDER FOR C/O NECK AND BACK PAIN. RATES PAIN 01/27. WILL MONITOR EFFECTIVENESS.
--- NOTE | 2018-07-05 09:00 | NUR ---
case management visits with patient, patient will be going home when able and denies any home needs
--- NOTE | 2018-07-05 09:26 | NUR ---
NORCO RELIEVING PAIN PER PT. WILL CONTINUE TO MONITOR.
--- NOTE | 2018-07-05 11:37 | NUR ---
PT C/O ANXIETY. NOTIFIED. AWAITING PHYSICIAN ORDERS.
[2018-07-05 12:00] VITALS: BP 156/63
[2018-07-05] MEDS ORDERED: LEVAQUIN750 M1 PO (12:43)
[2018-07-05] MEDS ORDERED: TEMAZEPAM15 M1 PO (12:43)
[2018-07-05] MEDS ORDERED: PREDNISONE10 MG PO (12:44)
--- NOTE | 2018-07-05 13:54 | NUR ---
Discharge instructions reviewed with patient/family. Patient receptive and verbalizes understanding. Follow-up care arranged. Written instructions given to patient/family. RUDY GOMEZ.
[2018-08-16 09:12] LABS: ACID FAST CULTURE Negative (.)
== END 2018-07-05 13:54 | disposition home or self-care (01) | DRG 190 ==
LOC: ED 13:48 → EDHOLD 14:42 → 4E 14:42
PROVIDERS: Internal Medicine; Internal Medicine Critical Care Medicine; Nurse Practitioner Family; Student in an Organized Health Care Education/Training Program; ADMIT Internal Medicine
DX: J43.9 Emphysema, unspecified (principal); N17.0 Acute kidney failure with tubular necrosis; T17.590A Other foreign object in bronchus causing asphyxiation, initial encounter; I50.32 Chronic diastolic (congestive) heart failure; J96.12 Chronic respiratory failure with hypercapnia; J96.11 Chronic respiratory failure with hypoxia; I13.0 Hypertensive heart and chronic kidney disease with heart failure and stage 1 through stage 4 chronic kidney disease, or unspecified chronic kidney disease; J45.51 Severe persistent asthma with (acute) exacerbation; R78.81 Bacteremia; Z68.41 Body mass index [BMI] 40.0-44.9, adult; E11.65 Type 2 diabetes mellitus with hyperglycemia; K76.0 Fatty (change of) liver, not elsewhere classified; E11.22 Type 2 diabetes mellitus with diabetic chronic kidney disease; J20.8 Acute bronchitis due to other specified organisms; N18.3 Chronic kidney disease, stage 3 (moderate); E55.9 Vitamin D deficiency, unspecified; B96.89 Other specified bacterial agents as the cause of diseases classified elsewhere; E66.01 Morbid (severe) obesity due to excess calories; D64.9 Anemia, unspecified; R07.89 Other chest pain; D72.810 Lymphocytopenia; F41.9 Anxiety disorder, unspecified; F32.9 Major depressive disorder, single episode, unspecified; G47.33 Obstructive sleep apnea (adult) (pediatric); X58.XXXA Exposure to other specified factors, initial encounter; Y93.89 Activity, other specified; Y92.89 Other specified places as the place of occurrence of the external cause; Y99.8 Other external cause status; Z99.81 Dependence on supplemental oxygen; Z98.51 Tubal ligation status; Z87.891 Personal history of nicotine dependence; Z82.49 Family history of ischemic heart disease and other diseases of the circulatory system; Z82.3 Family history of stroke; Z82.5 Family history of asthma and other chronic lower respiratory diseases; Z80.8 Family history of malignant neoplasm of other organs or systems; Z79.899 Other long term (current) drug therapy

== ENCOUNTER 2018-12-09 11:08 | Inpatient (IN) | payer OTHER ==
[2018-12-09] VITALS (8 sets, daily range): BP systolic 76–131; BP diastolic 36–69
[~2018-12-09] VITALS: Ht 170.1 cm; Wt 127.0 kg
--- NOTE | ~2018-12-09 | EKG ---
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
--- NOTE | ~2018-12-09 | EKG ---
[place], [place] ELECTROCARDIOGRAM REPORT NAME: ARLET BEACH UNIT #: [id number] ROOM: 526 DOCTOR: ALINA DRAFT REPORT BIRTHDATE: [birth year] [facility] Test Date: 2018-12-09 Test Time: 14:59:24 Pat Name: ARLET BEACH Department: Room: 526 Gender: F Card Lacer: : 1960 Requested By: TILA HERNANDEZ Order Number: [id number] Reading MD: Belem Nunn MD Measurements Intervals [place] Rate: 70 P: MN: QRS: 55 QRSD: 93 T: 57 QT: 407 QTc: 440 Interpretive Statements Sinus rhythm Low voltage, precordial leads Compared to ECG 07/01/2018 13:20:21 Accelerated junctional rhythm now present Low QRS voltage now present Sinus rhythm no longer present Electronically Signed On 12-10-2018 9:33:46 PDT by Belem Nunn MD CM:EKGRPT:ELECTROCARDIOGRAM REPORT [id number] TILA SANCHEZ DRAFT REPORT TILA HERNANDEZ DO
--- NOTE | ~2018-12-09 | EKG ---
[place], [place] ELECTROCARDIOGRAM REPORT NAME: ARLET BEACH UNIT #: [id number] ROOM: 526 DOCTOR: ALINA DRAFT REPORT BIRTHDATE: [birth year] [facility] Test Date: 2018-12-09 Test Time: 17:26:35 Pat Name: ARLET BEACH Department: Room: 526 Gender: F Framer: EKG.AL : 1960 Requested By: TILA HERNANDEZ Order Number: [id number] Reading MD: Belem Nunn MD Measurements Intervals [place] Rate: 105 P: 71 VA: 161 QRS: 50 QRSD: 90 T: 13 QT: 337 QTc: 446 Interpretive Statements Sinus tachycardia Low voltage, precordial leads Compared to ECG 07/01/2018 13:20:21 Low QRS voltage now present Sinus rhythm no longer present Electronically Signed On 12-10-2018 9:33:58 PDT by Belem Nunn MD CM:EKGRPT:ELECTROCARDIOGRAM REPORT [id number] TILA SANCHEZ DRAFT REPORT TILA HERNANDEZ DO
[~2018-12-09 11:08] MED LIST changes: +HYDROCODONE-AC1 EAC1 PO; +INCRUSE ELLI62.5 MCG INH; +METFORMIN HYD1000 MG PO; +TEMAZEPAM15 M1 PO; +TIZANIDINE2 MG PO; +ZESTORETIC 20-1 EACH PO
[2018-12-09 11:27] LABS: BASO % 0.3 % (0.0-1.0); EOS # 0.2 10*3/uL (0.0-0.4); EOS % 1.8 % (1.0-4.0); HEMATOCRIT 35.3 % (37.0-47.0); HEMOGLOBIN 10.5 g/dl (12.0-16.0); LYMPH # 1.9 10*3/uL (1.3-4.4); LYMPH % 21.4 % (27.0-41.0); MEAN CELL VOLUME 96.4 fl (81.0-99.0); MEAN CORPUSCULAR HGB 28.7 pg (27.0-31.0); MEAN CORPUSCULAR HGB CONC 29.7 g/dl (33.0-37.0); MEAN PLATELET VOLUME 10.4 fl (9.6-12.3); MONO # 0.8 10*3/uL (0.1-1.0); MONO % 8.9 % (3.0-9.0); NEUT % 67.4 % (47.0-73.0); PLATELET COUNT AUTOMATED 168 10*3/uL (130-400); RED BLOOD COUNT 3.66 10*6/uL (4.10-5.10); RED CELL DISTRI WIDTH 14.5 % (0-14.5); WHITE BLOOD COUNT 8.9 10*3/uL (4.8-10.8)
[2018-12-09 11:41] LABS: ALBUMIN 3.7 gm/dl (3.1-4.5); CREATININE 3.12 mg/dL (0.55-1.02)
--- NOTE | 2018-12-09 11:54 | NUR ---
RADIOLOGY AT BEDSIDE
--- NOTE | 2018-12-09 15:00 | NUR ---
A 58, admitted to , under the services of ARIANE Nelson DO with a diagnosis of HYPOTENSION. Chief complaint is DIZZINESS. Patient arrived via stretcher from ER. Monitor applied. Initial assessment completed. Vital signs taken and recorded. ARIANE NELSON DO notified of admission to the unit. Orders received. See assessment for past medical history, medications and allergies. Patient and/or family oriented to unit. [facility]. Clothing/patient valuable form completed. WESTON MCKEON
--- NOTE | 2018-12-09 15:06 | NUR ---
DR. TILA HERNANDEZ IN TO SEE PATIENT. DR. HERNANDEZ WANTED ONE AMP OF BICARB GIVEN NOW, CALLED RESPIRATORY TO HAVE DUONEB THAT ARE ORDERED GIVEN NOW. PT IS SITTING UP IN BED WITH NO COMPLAINTS AT THIS TIME. PT DENY DIZZINESS WHILE SITTING UP IN BED. OKAY TO D/C ORDER FOR CT SCAN AND ONOFRE AT THIS TIME.
[2018-12-09 15:42] LABS: BILIRUBIN NEGATIVE (NEGATIVE); BLOOD TRACE-LYSED (NEGATIVE); CLARITY CLEAR (CLEAR); COLOR YELLOW (YELLOW); GLUCOSE 1+ (NEGATIVE); KETONE NEGATIVE (NEGATIVE); LEUKO ESTERASE NEGATIVE (NEGATIVE); NITRITE NEGATIVE (NEGATIVE); PH 5.5 (5.0-9.0); SPECIFIC GRAVITY <= 1.005 (1.005-1.030); UROBILINOGEN 0.2 E.U./dl (0.2-1.0)
[2018-12-09 15:51] LABS: URINE AMPHETAMINES < 1000 (1000ng/ml); URINE BARBITURATES < 200 (200ng/ml); URINE CANNABINOIDS (THC) < 50 (50ng/ml); URINE CHLORIDE, RANDOM 30 mmol/L; URINE METHADONE < 300 (300ng/ml); URINE OPIATES > 300 (300ng/ml)
[2018-12-09 15:53] LABS: URINE BENZODIAZEPINES < 200 (200ng/ml); URINE COCAINE < 300 (300ng/ml)
--- NOTE | 2018-12-09 16:00 | NUR ---
DR. TILA HERNANDEZ NOTIFIED OF ORTHO BP RESULTS. PT STATE LESS DIZZY THAN THIS MORNING.
[2018-12-09 16:05] LABS: URINE PHENCYCLIDINE < 25 (25ng/ml)
[2018-12-09 16:18] LABS: RBC 0-2 rbc/hpf (0-2); WBC 0-2 wbc/hpf (0-5)
--- NOTE | 2018-12-09 16:59 | NUR ---
DR. WILLIAMSON ANSWERING SERVICE NOTIFIED OF NEW CONSULT
[2018-12-09] MEDS ORDERED: OMEPRAZOLE20 M2 PO (17:38)
--- NOTE | 2018-12-09 17:54 | NUR ---
DISCUSS PATIENT WITH DR. FIELD, WILL CALL HIM BACK WITH 1800 RENAL PANEL RESULTS
--- NOTE | 2018-12-09 18:04 | NUR ---
PT COMPLAIN OF GENERALIZED PAIN, NORCO GIVEN. SEE EMAR. WILL MONITOR FOR EFFECTIVENESS
[2018-12-09 18:05] LABS: ALBUMIN 3.9 gm/dl (3.1-4.5); CREATININE 2.42 mg/dL (0.55-1.02); PHOSPHOROUS 6.1 mg/dL (2.5-4.9); POTASSIUM 4.7 mmol/L (3.5-5.1)
--- NOTE | 2018-12-09 18:05 | NUR ---
DR. HERNANDEZ NOTIFIED THAT HOME MEDICATION LIST IS UPDATED, PT COM;PLAIN OF RIGHT KNEE PAIN, NO SWELLING OR BRUISING NOTED AT THIS TIME.
--- NOTE | 2018-12-09 19:17 | NUR ---
COMPLAIN OF HEADACHE, TYLENOL GIVEN.
--- NOTE | 2018-12-09 22:15 | NUR ---
PATIENT REPORTS HEADACHE HASN'T IMPROVED SINCE TYLENOL GIVEN. PRN NORCO AND RESOTRIL GIVEN TO PATIENT. WILL REASSESS.
[2018-12-10] VITALS: BP 128/68
--- NOTE | 2018-12-10 | NUR ---
PATIENT SLEEPING AT THIS TIME. NOCO ASSUMED TO BE EFFECTIVE FOR HEADACHE.
--- NOTE | 2018-12-10 04:45 | NUR ---
COMPLAINTS OF PAIN AT RAC IV SITE. IV REMOVED AND RESTARTED IN LAC. 1 ATTEMPT, PATIENT TOLERATED PROCEDURE WELL. GOOD BLOOD RETURN WITH GOOD FLUSH. NO SIGNS OR SYMPOTMS OF DISTRESS. PATIENT ALSO VOICES CONCERNS OF HEADACHE. PRN MEDICATIONS GIVEN. WILL REASSESS.
[2018-12-10 06:44] LABS: BASO % 0.1 % (0.0-1.0); EOS % 0.1 % (1.0-4.0); HEMATOCRIT 35.5 % (37.0-47.0); LYMPH # 0.6 10*3/uL (1.3-4.4); LYMPH % 7.5 % (27.0-41.0); MEAN CELL VOLUME 93.7 fl (81.0-99.0); MEAN PLATELET VOLUME 10.2 fl (9.6-12.3); MONO # 0.3 10*3/uL (0.1-1.0); MONO % 4.4 % (3.0-9.0); NEUT # 6.5 10*3/uL (2.3-7.9); NEUT % 87.5 % (47.0-73.0); PLATELET COUNT AUTOMATED 128 10*3/uL (130-400); RED BLOOD COUNT 3.79 10*6/uL (4.10-5.10); RED CELL DISTRI WIDTH 14.3 % (0-14.5); WHITE BLOOD COUNT 7.4 10*3/uL (4.8-10.8)
[2018-12-10 06:58] LABS: ACT PARTIAL THROMBO TIME 26.8 SECONDS (20.0-32.1); INTERNATIONAL NORM RATIO 0.9 (2.0-3.5)
[2018-12-10 07:01] LABS: ALBUMIN 3.8 gm/dl (3.1-4.5); CREATININE 1.68 mg/dL (0.55-1.02); PHOSPHOROUS 4.3 mg/dL (2.5-4.9); POTASSIUM 4.3 mmol/L (3.5-5.1); TOTAL PROTEIN 7.9 gm/dL (6.4-8.2)
[2018-12-10 08:52] LABS: VITAMIN D, 25-HYDROXY 18.8 ng/mL (30-100)
--- NOTE | 2018-12-10 08:52 | NUR ---
GLUCOSE CHECK THIS AM 107 PER PREVIOUS SHIFT, PREVIOUS SHIFT RN DID NOT CHART BLOOD SUGAR, CHARTED AT THIS TIME.
--- NOTE | 2018-12-10 08:52 | NUR ---
PT STATES HEADACHE IS "BETTER" AT THIS TIME. PT WALKED TO BATHROOM AND STATED THAT HER ANKLES HURT LESS THAN YESTERDAY, RIGHT KNEE ALSO IS NOT PAINFUL YESTERDAY. NO NEEDS STATED AT THIS TIME.
[2018-12-10 08:55] VITALS: BP 108/58
--- NOTE | 2018-12-10 09:13 | NUR ---
PT COMPLAIN OF PAIN IN NECK "NORMAL PAIN" NORCO GIVEN. SEE EMAR. WILL MONITOR FOR EFFECTIVENESS
--- NOTE | 2018-12-10 09:45 | NUR ---
PHYSICAL THERAPY PT SCREEN COMPLETED TODAY AND PATIENT STATES SHE IS DOING WELL AND DOES NOT FEEL SHE NEEDS ANY PT SERVICES. ASSESSMENT OF MOBILITY DURING SCREEN REVEALS SHE IS UP AD RIVKA IN ROOM AND NO DEFICITS WERE NOTED. DUE TO THE FACT THAT SHE DID HAVE BLE LEG WEAKNESS AND PAIN REPORTED BY PATIENT YESTERDAY AND HAS HX OF FALLS DISCUSSED THAT I FELT HAVING THE PT COME AND CHECK HER TOMORROW WOULD BE IN HER BEST INTEREST TO MAKE SURE SHE IS STILL UP AD RIVKA WITHOUT ISSUES. THANK YOU FOR REFERRAL VIVI ISRAEL PT
--- NOTE | 2018-12-10 10:02 | NUR ---
TANKROOM TENDER DISCONTINUED PER ORDER. PT STATES NO NEEDS AT THIS TIME
[2018-12-10 12:00] VITALS: BP 121/59
[2018-12-10 16:00] VITALS: BP 118/58
[2018-12-10 20:00] VITALS: BP 143/79
--- NOTE | 2018-12-10 21:16 | NUR ---
PATIENT MEDICATED WITH NORCO FOR C/O GENERALIZED PAIN 10/27. WILL MONITOR
--- NOTE | 2018-12-10 21:21 | NUR ---
PATIENT MEDICATED WITH RESTORIL FOR C/O INSOMNIA. WILL MONITOR
--- NOTE | 2018-12-10 22:00 | NUR ---
HEPARIN HELD PER NURSING JUDGEMENT FOR LOW PLT LEVEL.
--- NOTE | 2018-12-10 22:16 | NUR ---
NORCO EFFECTIVE FRO PAIN
--- NOTE | 2018-12-10 22:21 | NUR ---
RESTORIL EFFECTIVE. RESTING QUIETLY, EYES CLOSED
[2018-12-11] VITALS: BP 113/49
[2018-12-11 06:20] LABS: BASO % 0.5 % (0.0-1.0); EOS # 0.1 10*3/uL (0.0-0.4); HEMATOCRIT 32.8 % (37.0-47.0); HEMOGLOBIN 9.9 g/dl (12.0-16.0); LYMPH # 1.3 10*3/uL (1.3-4.4); LYMPH % 29.5 % (27.0-41.0); MEAN CELL VOLUME 94.5 fl (81.0-99.0); MEAN CORPUSCULAR HGB 28.5 pg (27.0-31.0); MEAN CORPUSCULAR HGB CONC 30.2 g/dl (33.0-37.0); MEAN PLATELET VOLUME 10.6 fl (9.6-12.3); MONO # 0.4 10*3/uL (0.1-1.0); MONO % 10.1 % (3.0-9.0); NEUT # 2.4 10*3/uL (2.3-7.9); NEUT % 56.7 % (47.0-73.0); PLATELET COUNT AUTOMATED 116 10*3/uL (130-400); RED BLOOD COUNT 3.47 10*6/uL (4.10-5.10); RED CELL DISTRI WIDTH 14.3 % (0-14.5); WHITE BLOOD COUNT 4.3 10*3/uL (4.8-10.8)
[2018-12-11 06:52] LABS: ALBUMIN 3.5 gm/dl (3.1-4.5); CREATININE 1.33 mg/dL (0.55-1.02); PHOSPHOROUS 2.9 mg/dL (2.5-4.9); POTASSIUM 4.2 mmol/L (3.5-5.1); TOTAL PROTEIN 7.8 gm/dL (6.4-8.2)
--- NOTE | 2018-12-11 07:05 | NUR ---
ARRIVED ON SHIFT, INTRODUCED TO PATIENT, BEDSIDE REPORT RECIEVED, WHITE BOARD UPDATED.
--- NOTE | 2018-12-11 07:56 | NUR ---
Shift chart check completed.
[2018-12-11 08:00] VITALS: BP 102/58
--- NOTE | 2018-12-11 08:07 | NUR ---
PHYSICAL THERAPY PAtient continues to report she does not want PT services at this time. PAtient is (I) in room with restroom, restroom hygeine, dressing and AD RIVKA mobility. PAtient with ankle difficulties. PAtient reports she just completed PT out patient at [facility] in past few months. Patient strongly encouraged and continually educated to please return to out patient PT as soon as possible and to include ankle/proprioception adn balance training- good understanding. Will d/c in-patient PT orders as patient requests. Strongly recommend out patient PT for balance/ankle and proprioception as well as (b)LE strenghtening. Thank you for this referral. Elma Evans,PT
--- NOTE | 2018-12-11 08:22 | NUR ---
Occupational Therapy referral received and chart review completed. Patient verbalized that she is independent in functional mobility and ADls at this time. Discharge OT referral at this time. THank you. Daina Hernandez OTR/whit
--- NOTE | 2018-12-11 10:48 | NUR ---
C/O NECK PAIN 11/27 MEDICATED WITH NORCO ORDERD, WILL CONTINUE TO MONITOR.
--- NOTE | 2018-12-11 11:48 | NUR ---
PATIENT REPORTS GOOD EFFECT FOR NORCO GIVEN X 1 HOUR AGO PAIN DECREASED TO 2/10
[2018-12-11 12:00] VITALS: BP 112/60
--- NOTE | 2018-12-11 13:50 | NUR ---
Discharge instructions reviewed with patient/family. Patient receptive and verbalizes understanding. Follow-up care arranged. Written instructions given to patient/family.HEPLOCK REMOVED, TRLEMETRY REMOVED, ASSISTED TO PRIVATE VEHICLE VIA W/NATHAN MACIAS
--- NOTE | 2018-12-11 14:28 | NUR ---
Gold Assayer in to talk to patient. Patient states lives at HOME with . There are FEW steps in the home. Physician: GAMA DESIR Pharmacy: [facility] [place] Home health services: NONE Patient's level of ADLs: INDEPENDENT Patient has working utilities: YES DME: NONE Follow-up physician's appointment after d/c: WILL BE MADE BY HOSPITALIST NURSE DIRECTOR ON DISCHARGE Does patient want to access PORTAL?: NO Discharge plan PT STATES SHE LIVES AT HOME WITH AND IS INDEPENDENT IN CARE. DENIES NEEDS ON DISCHARGE. STATES SHE WILL RETURN HOME WITH NO NEEDS.WILL CONTINUE TO FOLLOW. STATES SHE WILL HAVE A RIDE HOME.. PAGE LUO
== END 2018-12-11 13:51 | disposition home or self-care (01) | DRG 314 ==
LOC: ED 11:08 → EDHOLD 13:56 → 5E 13:56
PROVIDERS: Emergency Medicine; Internal Medicine; ADMIT Emergency Medicine
DX: I95.9 Hypotension, unspecified (principal); N17.0 Acute kidney failure with tubular necrosis; J96.10 Chronic respiratory failure, unspecified whether with hypoxia or hypercapnia; I50.32 Chronic diastolic (congestive) heart failure; I13.0 Hypertensive heart and chronic kidney disease with heart failure and stage 1 through stage 4 chronic kidney disease, or unspecified chronic kidney disease; G93.40 Encephalopathy, unspecified; Z68.41 Body mass index [BMI] 40.0-44.9, adult; R29.6 Repeated falls; E66.01 Morbid (severe) obesity due to excess calories; J44.9 Chronic obstructive pulmonary disease, unspecified; D64.9 Anemia, unspecified; E11.42 Type 2 diabetes mellitus with diabetic polyneuropathy; E86.0 Dehydration; E87.5 Hyperkalemia; F41.9 Anxiety disorder, unspecified; F32.9 Major depressive disorder, single episode, unspecified; R16.1 Splenomegaly, not elsewhere classified; E11.22 Type 2 diabetes mellitus with diabetic chronic kidney disease; E55.9 Vitamin D deficiency, unspecified; K76.0 Fatty (change of) liver, not elsewhere classified; G47.00 Insomnia, unspecified; S93.409A Sprain of unspecified ligament of unspecified ankle, initial encounter; N18.3 Chronic kidney disease, stage 3 (moderate); G47.33 Obstructive sleep apnea (adult) (pediatric); E78.5 Hyperlipidemia, unspecified; W18.30XA Fall on same level, unspecified, initial encounter; Y93.89 Activity, other specified; Y99.8 Other external cause status; Z99.81 Dependence on supplemental oxygen; Z98.51 Tubal ligation status; Z98.891 History of uterine scar from previous surgery; Z87.891 Personal history of nicotine dependence; Z82.49 Family history of ischemic heart disease and other diseases of the circulatory system; Z82.3 Family history of stroke; Z82.5 Family history of asthma and other chronic lower respiratory diseases; Z83.3 Family history of diabetes mellitus; Z80.8 Family history of malignant neoplasm of other organs or systems; Y92.090 Kitchen in other non-institutional residence as the place of occurrence of the external cause; Z79.899 Other long term (current) drug therapy

== ENCOUNTER 2019-04-11 09:03 | Emergency (ER) | payer OTHER ==
[~2019-04-11] VITALS: Ht 170.1 cm; Wt 133.4 kg
--- NOTE | ~2019-04-11 | EKG ---
[place], [place] ELECTROCARDIOGRAM REPORT NAME: ESTEPHANIA BEACH UNIT #: [id number] ROOM: DOCTOR: EPIPHANY DRAFT REPORT BIRTHDATE: [birth year] [facility] Test Date: 2019-04-11 Test Time: 10:21:50 Pat Name: ESTEPHANIA BEACH Department: Room: Gender: F Chemical Dependency Counselor: Estephania Valiente : 1960 Requested By: VICKI GARRETT Order Number: [id number] Reading MD: Warner Knight Measurements Intervals [place] Rate: 64 P: 9 IA: 144 QRS: 59 QRSD: 93 T: 47 QT: 437 QTc: 451 Interpretive Statements Sinus rhythm Compared to ECG 12/09/2018 17:26:35 Sinus tachycardia no longer present Electronically Signed On 04-12-2019 8:58:33 PDT by Warner Knight CM:EKGRPT:ELECTROCARDIOGRAM REPORT [id number] VICKI FULLER DRAFT REPORT VICKI GARRETT M.D.
--- NOTE | ~2019-04-11 | EKG ---
[place], [place] ELECTROCARDIOGRAM REPORT NAME: ARLET BEACH UNIT #: [id number] ROOM: DOCTOR: ALINA DRAFT REPORT BIRTHDATE: [birth year] [facility] Test Date: 2019-04-11 Test Time: 09:07:19 Pat Name: ARLET BEAHC Department: Room: Gender: F Spice Grinder: : 1960 Requested By: VICKI GARRETT Order Number: [id number] Reading MD: Warner Knight Measurements Intervals [place] Rate: 64 P: 62 ID: 138 QRS: 63 QRSD: 96 T: 47 QT: 448 QTc: 463 Interpretive Statements Sinus rhythm Baseline wander in lead(s) II,III,aVL,aVF,V1,V2,V3,V5,V6 Compared to ECG 12/09/2018 17:26:35 ST (T wave) deviation now present Sinus tachycardia no longer present Electronically Signed On 04-12-2019 8:58:31 PDT by Warner Knight CM:EKGRPT:ELECTROCARDIOGRAM REPORT [id number] VICKI FULLER DRAFT REPORT VICKI GARRETT M.D.
[~2019-04-11 09:03] MED LIST changes: +OMEPRAZOLE20 M2 PO
[2019-04-11 10:17] LABS: BASO % 0.3 % (0.0-1.0); EOS # 0.1 10*3/uL (0.0-0.4); EOS % 1.7 % (1.0-4.0); HEMATOCRIT 42.5 % (37.0-47.0); HEMOGLOBIN 12.5 g/dl (12.0-16.0); LYMPH % 17.4 % (27.0-41.0); MEAN CELL VOLUME 86.7 fl (81.0-99.0); MEAN CORPUSCULAR HGB 25.5 pg (27.0-31.0); MEAN CORPUSCULAR HGB CONC 29.4 g/dl (33.0-37.0); MONO # 0.4 10*3/uL (0.1-1.0); NEUT # 4.5 10*3/uL (2.3-7.9); NEUT % 74.3 % (47.0-73.0); PLATELET COUNT AUTOMATED 168 10*3/uL (130-400); RED CELL DISTRI WIDTH 15.1 % (0-14.5)
[2019-04-11 10:35] LABS: ALBUMIN 3.7 gm/dl (3.1-4.5); CREATININE 1.19 mg/dL (0.55-1.02); POTASSIUM 4.3 mmol/L (3.5-5.1); TOTAL PROTEIN 8.5 gm/dL (6.4-8.2)
[2019-04-11 11:12] LABS: BILIRUBIN NEGATIVE (NEGATIVE); BLOOD TRACE-INTACT (NEGATIVE); CLARITY CLEAR (CLEAR); COLOR YELLOW (YELLOW); GLUCOSE 3+ (NEGATIVE); KETONE NEGATIVE (NEGATIVE); LEUKO ESTERASE NEGATIVE (NEGATIVE); NITRITE NEGATIVE (NEGATIVE); UROBILINOGEN 0.2 E.U./dl (0.2-1.0)
[2019-04-11 11:19] LABS: WBC 0-2 wbc/hpf (0-5)
[2019-04-11 11:21] LABS: URINE AMPHETAMINES < 1000 (1000ng/ml); URINE BARBITURATES < 200 (200ng/ml); URINE BENZODIAZEPINES < 200 (200ng/ml); URINE CANNABINOIDS (THC) < 50 (50ng/ml); URINE COCAINE < 300 (300ng/ml); URINE METHADONE < 300 (300ng/ml); URINE OPIATES > 300 (300ng/ml)
[2019-04-11 11:27] LABS: URINE PHENCYCLIDINE < 25 (25ng/ml)
[2019-04-11] MEDS ORDERED: LEVOFLOXACIN500 MG PO (12:48)
== END 2019-04-11 12:53 | disposition home or self-care (01) ==
LOC: ED 09:03
PROVIDERS: Emergency Medicine
DX: J44.1 Chronic obstructive pulmonary disease with (acute) exacerbation (principal); J18.9 Pneumonia, unspecified organism; R11.10 Vomiting, unspecified; E66.01 Morbid (severe) obesity due to excess calories; I11.0 Hypertensive heart disease with heart failure; I50.30 Unspecified diastolic (congestive) heart failure; E11.9 Type 2 diabetes mellitus without complications; Z87.891 Personal history of nicotine dependence; Z79.899 Other long term (current) drug therapy

== ENCOUNTER 2019-04-14 17:45 | Emergency (ER) | payer OTHER ==
[~2019-04-14] VITALS: Ht 170.1 cm; Wt 127.0 kg
[~2019-04-14 17:45] MED LIST changes: +LEVOFLOXACIN500 MG PO
[2019-04-14 18:19] LABS: BASO % 0.4 % (0.0-1.0); EOS # 0.1 10*3/uL (0.0-0.4); HEMATOCRIT 42.2 % (37.0-47.0); HEMOGLOBIN 12.5 g/dl (12.0-16.0); LYMPH # 1.9 10*3/uL (1.3-4.4); LYMPH % 22.6 % (27.0-41.0); MEAN CELL VOLUME 84.9 fl (81.0-99.0); MEAN CORPUSCULAR HGB 25.2 pg (27.0-31.0); MEAN CORPUSCULAR HGB CONC 29.6 g/dl (33.0-37.0); MEAN PLATELET VOLUME 10.1 fl (9.6-12.3); MONO # 0.8 10*3/uL (0.1-1.0); MONO % 9.2 % (3.0-9.0); NEUT # 5.5 10*3/uL (2.3-7.9); NEUT % 66.6 % (47.0-73.0); PLATELET COUNT AUTOMATED 183 10*3/uL (130-400); RED BLOOD COUNT 4.97 10*6/uL (4.10-5.10); RED CELL DISTRI WIDTH 15.5 % (0-14.5); WHITE BLOOD COUNT 8.2 10*3/uL (4.8-10.8)
[2019-04-14 18:47] LABS: CREATININE 1.22 mg/dL (0.55-1.02); POTASSIUM 3.3 mmol/L (3.5-5.1); TOTAL PROTEIN 8.3 gm/dL (6.4-8.2)
[2019-04-14 19:51] LABS: ACT PARTIAL THROMBO TIME 24.5 SECONDS (20.0-32.1); INTERNATIONAL NORM RATIO 0.9 (2.0-3.5)
== END 2019-04-14 20:08 | disposition short-term general hospital (02) ==
LOC: ED 17:45
PROVIDERS: Physician Assistant
DX: I63.89 Other cerebral infarction (principal); E11.9 Type 2 diabetes mellitus without complications; J44.9 Chronic obstructive pulmonary disease, unspecified; Z86.14 Personal history of Methicillin resistant Staphylococcus aureus infection; E78.00 Pure hypercholesterolemia, unspecified; I50.9 Heart failure, unspecified; I11.0 Hypertensive heart disease with heart failure; Z79.899 Other long term (current) drug therapy; Z87.891 Personal history of nicotine dependence

== ENCOUNTER 2019-05-25 16:56 | Inpatient (IN) | payer OTHER ==
[~2019-05-25] VITALS: Ht 175.2 cm; Wt 117.7 kg
[2019-05-25 16:57] VITALS: BP 140/90
[2019-05-25 18:06] LABS: BASO % 0.4 % (0.0-1.0); EOS # 0.1 10*3/uL (0.0-0.4); EOS % 0.8 % (1.0-4.0); HEMATOCRIT 43.4 % (37.0-47.0); HEMOGLOBIN 13.1 g/dl (12.0-16.0); LYMPH # 1.8 10*3/uL (1.3-4.4); LYMPH % 25.1 % (27.0-41.0); MEAN CELL VOLUME 85.4 fl (81.0-99.0); MEAN CORPUSCULAR HGB 25.8 pg (27.0-31.0); MEAN CORPUSCULAR HGB CONC 30.2 g/dl (33.0-37.0); MEAN PLATELET VOLUME 10.4 fl (9.6-12.3); MONO # 0.6 10*3/uL (0.1-1.0); MONO % 8.2 % (3.0-9.0); NEUT # 4.6 10*3/uL (2.3-7.9); NEUT % 65.4 % (47.0-73.0); PLATELET COUNT AUTOMATED 267 10*3/uL (130-400); RED BLOOD COUNT 5.08 10*6/uL (4.10-5.10); RED CELL DISTRI WIDTH 16.3 % (0-14.5); WHITE BLOOD COUNT 7.1 10*3/uL (4.8-10.8)
--- NOTE | 2019-05-25 18:15 | NUR ---
PT STATES THAT SHE IS ANXIOUS. MOVED PT TO A CHAIR SO SHE COULD SEE OUT THE ROOM
[2019-05-25 18:18] LABS: ACT PARTIAL THROMBO TIME 26.5 SECONDS (20.0-32.1)
[2019-05-25 18:27] LABS: ALBUMIN 4.1 gm/dl (3.1-4.5); ALKALINE PHOSPHATASE 93 U/L (45-117); BUN 17 mg/dl (7-24); CHLORIDE 106 mmol/L (98-107); CREATININE 0.99 mg/dL (0.55-1.02); LIPASE 159 U/L (73-393); POTASSIUM 3.5 mmol/L (3.5-5.1); SGOT/AST 29 IU/L (3-35); SGPT/ALT 35 U/L (12-78); SODIUM 141 mmol/L (136-145); TOTAL PROTEIN 8.9 gm/dL (6.4-8.2)
[2019-05-25 18:30] LABS: TROPONIN I < 0.015 ng/ml (<0.045)
[2019-05-25 18:58] VITALS: BP 148/86
[2019-05-25 20:30] VITALS: BP 130/41; BP 130/71
--- NOTE | 2019-05-25 20:53 | NUR ---
A 59, admitted to 5E, under the services of SAMAN Whiteside DO with a diagnosis of GENERALIZED WEAKNESS, ANXIETY. Chief complaint is INABILITY TO PREFORM ADL'S. Patient arrived via wheel chair from ER. Monitor applied. Initial assessment completed. Vital signs taken and recorded. SAMAN WHITESIDE DO notified of admission to the unit. Orders received. See assessment for past medical history, medications and allergies. Patient and/or family oriented to unit. [address] visitation policy reviewed. Clothing/patient valuable form completed. JUSTEN MALDONADO
[2019-05-26] VITALS: BP 121/63
--- NOTE | 2019-05-26 02:45 | NUR ---
PT IS EXTREMELY ANXIOUS. CALLS OUT, CRYING AND STATING SHE "NEEDS SOMETHING NOW". DR MACKEY CALLED, ORDERS RECIEVED.
--- NOTE | 2019-05-26 03:27 | NUR ---
PT ADMINISTERED ONE TIME DOSE OF GEODON FOR SEVERE AGGITATION. WILL MONITOR FOR EFFECTIVENESS.
[2019-05-26 08:00] VITALS: BP 134/84
[2019-05-26] MEDS ORDERED: OXYCODONE5 M1 PO (11:11)
[2019-05-26] MEDS ORDERED: BREO ELLIPTA 11 EACH INH (11:13)
[2019-05-26] MEDS ORDERED: METHOCARBAMOL500 M1 PO ×2 (11:18→11:21)
[2019-05-26] MEDS ORDERED: NORVASC5 MG PO (11:18)
[2019-05-26] MEDS ORDERED: XANAX0.25 MG PO (11:19)
[2019-05-26 12:00] VITALS: BP 147/99
[2019-05-26] MEDS ORDERED: Flonase 0.05% 120 Me NAS (12:23)
--- NOTE | 2019-05-26 13:00 | NUR ---
PHYSICAL THERAPY PT EVAL COMPLETED TODAY: PT SERVICES WERE RECOMMENDED DUE TO RECENT CVA BUT PATIENT WAS MOD (I) ON EVAL AND STATED SHE DID NOT WANT OR NEED PT SERVICES WHILE HERE AND WANTS TO GO HOME WITH HOME HEALTH AND KIP. PT EVAL IS MODERATE COMPLEXITY; [id number]. D/C RECOMMENDATIONS WOULD BE FOR HOME WITH AND HOME HEALTH SERVICES. THANK YOU FOR REFERRAL VIVI ISRAEL PT
--- NOTE | 2019-05-26 13:31 | NUR ---
PATIENT WAS BEING DISCHARGED TO U AND NOW PATIENT REFUSING TO GO. DR. GENTILE WILL STOP DISCHARGE AND KEEP HERE ON [facility] FLOOR.
[2019-05-26 16:00] VITALS: BP 125/71
--- NOTE | 2019-05-26 19:07 | NUR ---
MEDICATED WITH PRN VISTARIL PER ORDER AND REQUEST.
--- NOTE | 2019-05-26 19:50 | NUR ---
SPOKE WITH MARIA FERNANDA FROM RESPIRATORY REGARDING PT REQUEST FOR HUMIDIFICATION ON OXYGEN TO HELP WITH "DRYING & ITCHING OF HER NOSTRILS".
[2019-05-26 20:00] VITALS: BP 120/88; BP 98/40
--- NOTE | 2019-05-26 23:54 | NUR ---
24 HOUR CHART CHECK COMPLETE.
--- NOTE | 2019-05-27 07:40 | NUR ---
MEDICATED WITH PRN VISTARIL PER ORDER AND REQUEST.
[2019-05-27 08:00] VITALS: BP 125/78
[2019-05-27 12:00] VITALS: BP 123/67
[2019-05-27 16:00] VITALS: BP 101/59
--- NOTE | 2019-05-27 17:00 | NUR ---
PT REFUSING AEROSOL TREATMENTS. RN INFORMED.
--- NOTE | 2019-05-27 18:31 | NUR ---
MEDICATED WITH PRN VISTARIL PER OPRDER AND REQUEST.
[2019-05-27 20:00] VITALS: BP 116/92
--- NOTE | 2019-05-27 20:31 | NUR ---
IN TO ASSESS PT AT THIS TIME. PT SITTING IN CHAIR AT BEDSIDE. STATES SHE WANTS TO TAKE A WALK IN THE HALLWAY. STATES THAT SHE WAS "COMLPETELY OUT OF HER HEAD A FEW DAYS AGO, BUT IS FEELING 98% BETTER AT THIS TIME". RESPIRATIONS EASY AND UNLABORED. 4L NC, DEPENDENT. NO SIGNS OF DISCOMFORT OR DISTRESS. PT WALKED DOWN THE PAYAN WITH PORTABLE OXYGEN AND DID WELL. SITTING AT THE END OF THE PAYAN LOOKING OUTSIDE AT THIS TIME. RIGHT SIDE IS STILL WEAK FROM CVA, BUT PT DID WELL WALKING WITHOUT HER WALKER. WILL CONTINUE TO MONITOR.
--- NOTE | 2019-05-28 00:59 | NUR ---
PT SITTING IN BED, ROCKING BACK AND FORTH STATES SHE IS FEELING UNEASY AND ANXIOUS. PRN VISTARIL ADMINISTERED PRESCRIBED WILL CONTINUE TO MONITOR.
--- NOTE | 2019-05-28 01:37 | NUR ---
PT RESTING IN BED. APPEARS TO BE MORE RELAXED.
--- NOTE | 2019-05-28 03:23 | NUR ---
24 HOUR CHART CHECK COMPLETE.
--- NOTE | 2019-05-28 05:15 | NUR ---
TYLENOL ADMINISTERED FOR PT C/O HEADACHE RATED A 5/10 ON THE PAIN SCALE.
[2019-05-28 05:58] LABS: BASO % 0.4 % (0.0-1.0); EOS # 0.2 10*3/uL (0.0-0.4); EOS % 3.9 % (1.0-4.0); HEMATOCRIT 39.8 % (37.0-47.0); HEMOGLOBIN 11.9 g/dl (12.0-16.0); LYMPH # 1.4 10*3/uL (1.3-4.4); LYMPH % 29.5 % (27.0-41.0); MEAN CELL VOLUME 86.9 fl (81.0-99.0); MEAN CORPUSCULAR HGB CONC 29.9 g/dl (33.0-37.0); MEAN PLATELET VOLUME 9.8 fl (9.6-12.3); MONO # 0.5 10*3/uL (0.1-1.0); MONO % 11.2 % (3.0-9.0); NEUT # 2.7 10*3/uL (2.3-7.9); PLATELET COUNT AUTOMATED 198 10*3/uL (130-400); RED BLOOD COUNT 4.58 10*6/uL (4.10-5.10); RED CELL DISTRI WIDTH 15.9 % (0-14.5); WHITE BLOOD COUNT 4.8 10*3/uL (4.8-10.8)
[2019-05-28 06:12] LABS: BUN 17 mg/dl (7-24); CHLORIDE 106 mmol/L (98-107); CREATININE 0.96 mg/dL (0.55-1.02); SODIUM 142 mmol/L (136-145)
[2019-05-28 08:00] VITALS: BP 127/76
[2019-05-28] MEDS ORDERED: NEURONTIN600 MG PO (08:09)
[2019-05-28] MEDS ORDERED: BREO ELLIPTA 11 EACH INH (08:09)
[2019-05-28] MEDS ORDERED: VENTOLIN 02.5 MG/3 M INH (08:09)
[2019-05-28] MEDS ORDERED: NORVASC5 MG PO (08:09)
[2019-05-28] MEDS ORDERED: METHOCARBAMOL500 M1 PO (08:09)
[2019-05-28] MEDS ORDERED: LIPITOR40 MG PO (08:09)
[2019-05-28] MEDS ORDERED: OXYCODONE5 M1 PO (08:09)
[2019-05-28] MEDS ORDERED: AUGMENTIN 875875 MG PO (08:09)
[2019-05-28] MEDS ORDERED: XANAX0.25 MG PO (08:09)
[2019-05-28] MEDS ORDERED: TRAD5TAB1 PO (08:10)
[2019-05-28] MEDS ORDERED: FLONASE ALLERG9.9 ML NAS (08:10)
[2019-05-28] MEDS ORDERED: JARDIANCE25 MG PO (08:10)
[2019-05-28] MEDS ORDERED: DALI500T PO (08:10)
--- NOTE | 2019-05-28 08:21 | NUR ---
PHYSICAL THERAPY Screen received as well as PT orders. Evaluation completed on 05/26 pt was Mod Independent with activity and did not want or need any therapy at this time. PT was discontinued recomendation for home with , thank you Marilee Swenson PT
--- NOTE | 2019-05-28 08:40 | NUR ---
Occupational therapy orders and nursing screen received. Will follow up with patient for completion of OT evaluation. Thank you. Natacha Major, OTR/L
--- NOTE | 2019-05-28 09:46 | NUR ---
DISCHARGE INSTRUCTIONS PROVIDED AWAITING TO BRING PT MEDICATION BOTTLES IN SO I AM ABLE TO EDUCATE PT IN MEDICATION ADMINISTRATION COMPLIANCE.
--- NOTE | 2019-05-28 10:28 | NUR ---
EXTENSIVE EDUCATION PROVIDED REGARDING MEDICATIONS PROVIDED. PT NEEDED ALL PRESCRIPTIONS. RECOMMENDED BUBBLE PACKS FOR MED ADMINISTRATION. PT RECEPTIVE AND LIST PROVIDED FOR PHARMACY'S PROVIDING THIS SERVICE.
--- NOTE | 2019-05-28 10:31 | NUR ---
Discharge instructions reviewed with patient/family. Patient receptive and verbalizes understanding. Follow-up care arranged. Written instructions given to patient/family. CARLITA BRUNO
== END 2019-05-28 10:31 | disposition home or self-care (01) | DRG 880 ==
LOC: ED 16:56 → EDHOLD 19:33 → 5E 20:06
PROVIDERS: Family Medicine; Nurse Practitioner Family; ADMIT Internal Medicine
DX: F41.9 Anxiety disorder, unspecified (principal); L03.211 Cellulitis of face; I50.32 Chronic diastolic (congestive) heart failure; J96.10 Chronic respiratory failure, unspecified whether with hypoxia or hypercapnia; F32.2 Major depressive disorder, single episode, severe without psychotic features; L03.213 Periorbital cellulitis; R53.1 Weakness; R00.0 Tachycardia, unspecified; J44.9 Chronic obstructive pulmonary disease, unspecified; E11.40 Type 2 diabetes mellitus with diabetic neuropathy, unspecified; E11.65 Type 2 diabetes mellitus with hyperglycemia; I11.0 Hypertensive heart disease with heart failure; E55.9 Vitamin D deficiency, unspecified; K76.0 Fatty (change of) liver, not elsewhere classified; E66.01 Morbid (severe) obesity due to excess calories; G47.30 Sleep apnea, unspecified; Z99.81 Dependence on supplemental oxygen; I69.30 Unspecified sequelae of cerebral infarction; Z87.01 Personal history of pneumonia (recurrent); Z91.81 History of falling; Z98.51 Tubal ligation status; Z98.891 History of uterine scar from previous surgery; Z87.891 Personal history of nicotine dependence; Z82.3 Family history of stroke; Z82.49 Family history of ischemic heart disease and other diseases of the circulatory system; Z82.5 Family history of asthma and other chronic lower respiratory diseases; Z83.3 Family history of diabetes mellitus; Z80.8 Family history of malignant neoplasm of other organs or systems; Z79.899 Other long term (current) drug therapy; Z68.38 Body mass index [BMI] 38.0-38.9, adult

== ENCOUNTER → 2022-07-20 | Outpatient (CLI) | payer OTHER ==
[~2022-07-20] MED LIST changes: +AUGMENTIN 875875 MG PO; +BREO ELLIPTA 11 EACH INH; +FLONASE ALLERG9.9 ML NAS; +Flonase 0.05% 120 Me NAS; +METHOCARBAMOL500 M1 PO; +NORVASC5 MG PO; +OXYCODONE5 M1 PO; +XANAX0.25 MG PO
== END | disposition home or self-care (01) ==
LOC: RAD 10:34
PROVIDERS: ATTEND Family Medicine
DX: M51.36 Other intervertebral disc degeneration, lumbar region (principal); M51.26 Other intervertebral disc displacement, lumbar region

== ENCOUNTER → 2023-01-26 | Outpatient (CLI) | payer OTHER | END | disposition home or self-care (01) | LOC: MRI 01:08 | PROVIDERS: ATTEND Family Medicine | DX: M48.061 Spinal stenosis, lumbar region without neurogenic claudication (principal); M48.02 Spinal stenosis, cervical region; M51.16 Intervertebral disc disorders with radiculopathy, lumbar region; M51.06 Intervertebral disc disorders with myelopathy, lumbar region; M47.812 Spondylosis without myelopathy or radiculopathy, cervical region; N28.1 Cyst of kidney, acquired ==

== ENCOUNTER → 2023-03-03 | Outpatient (CLI) | payer OTHER | END | disposition home or self-care (01) | LOC: US 00:09 | PROVIDERS: ATTEND Nurse Practitioner Primary Care | DX: E11.65 Type 2 diabetes mellitus with hyperglycemia (principal); M79.89 Other specified soft tissue disorders; Z87.891 Personal history of nicotine dependence ==

== ENCOUNTER → 2023-03-11 | Outpatient (CLI) | payer OTHER | END | disposition home or self-care (01) | LOC: US 01:03 | PROVIDERS: ATTEND Nurse Practitioner Primary Care | DX: I73.9 Peripheral vascular disease, unspecified (principal); E11.65 Type 2 diabetes mellitus with hyperglycemia; M79.89 Other specified soft tissue disorders; Z87.891 Personal history of nicotine dependence ==

== ENCOUNTER → 2023-07-04 | Outpatient (CLI) | payer OTHER | END | disposition home or self-care (01) | LOC: CT 03:30 | PROVIDERS: ATTEND Internal Medicine Critical Care Medicine | DX: Z12.2 Encounter for screening for malignant neoplasm of respiratory organs (principal); J43.9 Emphysema, unspecified; J96.11 Chronic respiratory failure with hypoxia; G47.33 Obstructive sleep apnea (adult) (pediatric); Z68.42 Body mass index [BMI] 45.0-49.9, adult; Z99.81 Dependence on supplemental oxygen; Z87.891 Personal history of nicotine dependence ==

== ENCOUNTER 2025-04-13 06:11 | Emergency (ER) | payer OTHER ==
[~2025-04-13 06:11] MED LIST changes: +AMLODIPINE BESY10 MG PO; +ATENOLOL100 M1 PO; +BUSPAR5 MG PO; +CYMBALTA60 MG PO; +DOXYCYCLINE HY100 M3 PO; +DOXYCYCLINE MO100 MG PO; +DULOXETINE HCL60 MG PO; +FUROSEMIDE20 M1 PO; +GABAPENTIN800 MG PO; +MUCUS RELIEF600 MG PO; +POTASSIUM CHLO20 ME4 PO; +PROAIR DIGIHAL90 MCG INH; +TIZANIDINE HCL4 MG PO; +TOPCARE OMEPRAZ20 MG PO; +TRULICITY3 MG/0.5 M SQ
[2025-04-13] MEDS ORDERED: Ondansetron Hydrochloride 4 MG/2 ML VIAL IV ONE (06:30)
[2025-04-13] MEDS ORDERED: hydrOXYzine hydrochloride 50 MG/ML VIAL IM ONE (06:30)
[2025-04-13 06:44] LABS: BASO # 0.0 10*3/uL (0.0-0.1); BASO % 0.3 % (0.0-1.0); EOS # 0.0 10*3/uL (0.0-0.4); EOS % 0.1 % (1.0-4.0); MEAN CELL VOLUME 85.8 fl (81.0-99.0); MEAN CORPUSCULAR HGB 26.9 pg (27.0-31.0); MEAN PLATELET VOLUME 11.2 fl (9.6-12.3); MONO # 0.4 10*3/uL (0.1-1.0); MONO % 5.0 % (3.0-9.0); NEUT # 6.6 10*3/uL (2.3-7.9); NEUT % 84.3 % (47.0-73.0); NUCLEATED RED BLOOD CELL 0.0 % (0.0-0.0); NUCLEATED RED BLOOD CELL 0.0 10*3/uL (0.0-0.0); PLATELET COUNT AUTOMATED 241 10*3/uL (130-400); RED CELL DISTRI WIDTH 13.4 % (0-14.5)
[2025-04-13 07:10] LABS: BUN 10 mg/dl (9-23); SGPT/ALT 12 U/L (5-49)
[2025-04-13] MEDS ORDERED: Ondansetron4 MG PO (07:40)
[2025-04-13] MEDS ORDERED: PREDNISONE10 M1 PO (07:40)
[2025-04-13] MEDS ORDERED: AVPAK AZITHROM250 M1 PO (07:40)
== END 2025-04-13 08:01 | disposition home or self-care (01) ==
LOC: ED 06:11
PROVIDERS: Emergency Medicine
DX: J44.1 Chronic obstructive pulmonary disease with (acute) exacerbation (principal); R11.2 Nausea with vomiting, unspecified; I10 Essential (primary) hypertension; E11.9 Type 2 diabetes mellitus without complications; Z87.891 Personal history of nicotine dependence; Z98.890 Other specified postprocedural states